=== PATIENT | female | born 1975 | race Caucasian/White ===

== ENCOUNTER 2019-08-17 14:13 | Inpatient (IN) | payer BC, OTHER ==
--- OUTSIDE RECORDS SUMMARY | 2019-08-17 14:16 | XMS REPORT ---
:1975 [facility] Address [address] [place] [address] Dr. Díaz [address] [place] [id number] Care Team Providers Name Role Phone Unavailable Unavailable Unavailable Problems This patient has no known problems. Allergies, Adverse Reactions, Alerts This patient has no known allergies or adverse reactions. Medications This patient has no known medications.
--- OUTSIDE RECORDS SUMMARY | 2019-08-17 14:16 | XMS REPORT ---
:1975 Author Organization [employer] Care Team Providers Name Role Phone Lyric Siegel Provider Role Unavailable Allergies, Adverse Reactions, Alerts Substance Reaction Event Type PCN hives Drug Allergy [place] hives Non Drug Allergy [place] hives Non Drug Allergy [place] hives Non Drug Allergy Problems Problem Type Condition Code Onset Dates Condition Status Assessment Paresthesia of both hands R20.2 Active Assessment Depression with anxiety F41.8 Active Assessment Hidradenitis suppurativa L73.2 Active Assessment Paresthesia of arm R20.2 Active Problem Depression F32.9 Active Problem Depression with anxiety F41.8 Active Problem Anxiety F41.9 Active Problem Paresthesia of both hands R20.2 Active Problem Seasonal allergies J30.2 Active Problem Paresthesia of arm R20.2 Active Medications Medication Code Code Instructions Start End Status Dosage System Date Date BusPIRone HCl [facility] [id number] 7.5 MG Orally Oct 24, Active 1 tablet Twice a day 2019 as needed for anxiety Ashwagandha [facility] [id number] Active not defined Trintellix [facility] [id number] 10 MG Orally Oct 24, Active 1 tablet Once a day for 2019 depression Results No Known Results Summary Purpose eClinicalWorks Submission
--- OUTSIDE RECORDS SUMMARY | 2019-08-17 14:17 | XMS REPORT ---
:1975 Author Organization [employer] Care Team Providers Name Role Phone Lyric Siegel Provider Role Unavailable Allergies No Known Allergies Problems Problem Type Condition Code Onset Dates Condition Status Problem Depression F32.9 Active Problem Depression with anxiety F41.8 Active Problem Anxiety F41.9 Active Problem Paresthesia of both hands R20.2 Active Problem Seasonal allergies J30.2 Active Problem Paresthesia of arm R20.2 Active Medications Medication Code Code Instructions Start End Status Dosage System Date Date Paroxetine HCl [facility] [id number] 20 MG Orally Jun 27, Active 1 tablet Once a day 2019 in the morning Results No Known Results Summary Purpose eClinicalWorks Submission
--- OUTSIDE RECORDS SUMMARY | 2019-08-17 14:17 | XMS REPORT ---
:1975 Author Organization [employer] Care Team Providers Name Role Phone Robbin Lyric Provider Role Unavailable Allergies No Known Allergies Problems Problem Type Condition Code Onset Dates Condition Status Problem Depression F32.9 Active Problem Depression with anxiety F41.8 Active Problem Anxiety F41.9 Active Problem Paresthesia of both hands R20.2 Active Problem Seasonal allergies J30.2 Active Problem Paresthesia of arm R20.2 Active Medications No Known Medications Results No Known Results Summary Purpose eClinicalWorks Submission
[2019-08-17] MEDS ORDERED: ONDANSETRON 4 MG/2 ML VIAL ONE (15:41)
[2019-08-17] MEDS ORDERED: MORPHINE 4 MG/ML SYR ONE ×2 (15:41→17:08)
[2019-08-17 15:45] LABS: Absolute Lymphocytes (CBC) 1.8 K/uL (0.7-4.9); Basophils % 0.3 % (0-1.3); Lymphocytes % 18.2 % (15.3-44.8); RBC Red Blood Cell Count 4.03 M/uL (3.86-4.86)
[2019-08-17 16:00] LABS: ALT/SGPT 40 U/L (12-78); AST/SGOT 25 U/L (15-37); Albumin 3.6 g/dL (3.4-5.0); Alkaline Phosphatase 99 U/L (45-117); BUN Blood Urea Nitrogen 10 mg/dL (7-18); Bicarbonate 26 mmol/L (21-32); Bilirubin Total 0.4 mg/dL (0.2-1.0); Glucose Level 96 mg/dL (74-106); Potassium 3.8 mmol/L (3.5-5.1); Protein, Total 7.5 g/dL (6.4-8.2); Sodium Level 139 mmol/L (136-145)
[2019-08-17 16:12] LABS: Urine Blood NEGATIVE (NEG); Urine Glucose NEGATIVE (NEG); Urine Protein NEGATIVE (NEG); Urine pH 6.5 (5.0-7.0)
--- NOTE | 2019-08-17 16:53 | RAD REPORT ---
EXAM DESCRIPTION: CT - Soft Tissue Neck W/Contr - 08/17/2019 4:37 pm CLINICAL HISTORY: Right neck and facial pain and swelling COMPARISON: None. TECHNIQUE: Computed axial tomography of the neck and face was obtained. 50 cc Isovue 300 was admini stered intravenously. Coronal and sagittal reconstruction was performed. All CT scans are performed using dose optimization technique as appropriate and may include automated exposure control or mA/KV adjustment according to patient size. FINDINGS: A 19 millimeter low-density mass is present within the subcutaneous tissues of the right c heek compatible with an abscess. Stranding is present within the adjacent fat The parotid and submandibular glands appear unremarkable. The parapharyngeal fat is clear. The pharynx, larynx, tongue base and subglottic trachea are unremarkable. Fluid is not present within the sinuses/mastoids IMPRESSION: 19 millimeter abscess right cheek
--- NOTE | 2019-08-17 16:53 | RAD REPORT ---
EXAM DESCRIPTION: CTFacial Bones W Con Mpr08/17/2019 4:36 pm CLINICAL HISTORY: Right facial/neck pain and swelling COMPARISON: None. TECHNIQUE: Computed axial tomography of the face and neck obtained with coronal and sagittal reconst ruction. 50 cc Isovue-[address] scans are performed using dose optimization technique as appropriate and may include automated exposure control or mA/KV adjustment according to patient size. FINDINGS: A 19 millimeter low-density mass is present within the subcutaneous tissues of the right c heek compatible with an abscess. Stranding is present within the adjacent fat The parotid and submandibular glands appear unremarkable. The parapharyngeal fat is clear. The pharynx, larynx, tongue base and subglottic trachea are unremarkable. Fluid is not present within the sinuses/mastoids IMPRESSION: 19 millimeter abscess within the right cheek .
--- NOTE | 2019-08-17 17:44 | ER ---
Nurse's Notes [facility] Name: Radha Ha Age: 44 yrs Sex: Female : 1975 Arrival Date: 08/17/2019 Time: 14:17 Bed 15 Private MD: Diagnosis: Facial Cellulitis;Facial Abscess;Failed Outpatient Therapy Presentation: 08/17 14:25 Presenting complaint: Patient states: was seen by urgent care yesterday for right sv facial swelling and given meds, swelling has increased on the right side and radiated down to the right neck. Transition of care: patient was not received from another setting of care. Onset of symptoms was July 2019. Care prior to arrival: None. 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 - Social history:: Smoking status: Patient/guardian denies using tobacco, Patient/guardian denies using alcohol, street drugs. Screenin:40 Abuse screen: Denies threats or abuse. Denies injuries from another. Nutritional ch screening: No deficits noted. Tuberculosis screening: No symptoms or risk factors identified. Fall Risk None identified. Assessment: 14:38 Reassessment: Patient appears in no apparent distress at this time. Patient and/or ch family updated on plan of care and expected duration. Pain level reassessed. Patient is alert, oriented x 3, equal unlabored respirations, skin warm/dry/pink. Pain: Complains of pain in face and throat Pain currently is 7 out of 10 on a pain scale. Respiratory: Airway is patent Respiratory effort is even, unlabored, Breath sounds are clear bilaterally. GI: No signs and/or symptoms were reported involving the gastrointestinal system. EENT: Oral mucosa is moist. pt has swelling to cheek, exterior and going interior. states her teeth feel fine but now she is having pain and pressure in the back of her throat on the R side, in her ear, and her forehead. . EENT: Throat is reddened. Derm: Skin is pink, warm \T\ dry. Wound noted Other: pt states she has 7 active wounds on her body right now, she always gets them. states this is the first time she has had one on her face, and her R cheek is extremely swollen and red. Musculoskeletal: Circulation, motion, and sensation intact. 16:25 Reassessment: Patient appears in no apparent distress at this time. Patient and/or ch family updated on plan of care and expected duration. Pain level reassessed. Patient is alert, oriented x 3, equal unlabored respirations, skin warm/dry/pink. Patient states feeling better. Patient states symptoms have improved. pt states her pain is a 6, it is tolerable. . 19:10 General: Appears in no apparent distress. uncomfortable, Behavior is calm, cooperative, rr5 appropriate for age, for transfer to room 411. ED provider aware for the pain with order made and carried out.. 19:10 Pain: Complains of pain in right cheek Pain radiates to neck Pain currently is 8 out of rr5 10 on a pain scale. Quality of pain is described as aching, Pain began gradually, Is intermittent. Neuro: Level of Consciousness is awake, alert, obeys commands, Oriented to person, place, time, situation, Appropriate for age. Cardiovascular: Capillary refill < 3 seconds Patient's skin is warm and dry. Respiratory: Airway is patent Respiratory effort is even, unlabored, Respiratory pattern is regular, symmetrical. GI: No signs and/or symptoms were reported involving the gastrointestinal system. : No signs and/or symptoms were reported regarding the genitourinary system. EENT: Oral mucosa is moist. Throat is reddened with gag reflex present. Derm: Skin is intact, is healthy with good turgor, Skin temperature is warm. Musculoskeletal: Capillary refill < 3 seconds. 20:00 Reassessment: Patient appears in no apparent distress at this time. Patient is alert, rr5 oriented x 3, equal unlabored respirations, skin warm/dry/pink. stat medication given for the pain. Vital Signs: 14:26 BP 140 / 82; Pulse 86; Resp 16; Temp 97.8; Pulse Ox 96% ; Weight 88.9 kg; Height 5 ft. sv 5 in. (165.10 cm); 15:40 BP 156 / 78; Pulse 85; Resp 18; Pulse Ox 97% on R/A; Pain 9/10; ch 16:25 BP 127 / 76; Pulse 77; Resp 16; Pulse Ox 99% on R/A; Pain 6/10; ch 19:10 BP 141 / 75; Pulse 75; Resp 17; Temp 98.1; Pulse Ox 98% ; Pain 8/10; rr5 19:55 BP 133 / 83; Pulse 79; Resp 19; Temp 98; Pulse Ox 99% ; Pain 8/10; rr5 14:26 Body Mass Index 32.62 (88.90 kg, 165.10 cm) sv ED Course: 14:17 Patient arrived in ED. as 14:25 Triage completed. sv 14:26 Arm band placed on. sv 14:36 Mary Cisse, ROSALIE is Primary Nurse. ch 14:58 Catracho Khoury PA is PHCP. [facility] 14:58 Johnny Rosario MD is Attending Physician. jmm 15:40 No apparent distress. Resting quietly. ch 15:40 Pulse ox on. NIBP on. ch 15:40 No provider procedures requiring assistance completed. ch 15:43 Patient has correct armband on for positive identification. Bed in low position. Call light in reach. Side rails up X 1. Adult w/ patient. 15:43 Inserted saline lock: 22 gauge in right forearm, using aseptic technique. Blood ch collected. 16:36 CT Facial Bones W/ Con \T\ Mpr In Process Unspecified. EDMS 16:36 Soft Tissue Neck W/Contr CT In Process Unspecified. EDMS 17:27 Marlo Dickson DO is Hospitalizing Provider. jmm 20:01 Delvin Wood, RN is Primary Nurse. rr5 20:09 Patient admitted, IV remains in place. intact, No redness/swelling at site. rr5 Administered Medications: 15:54 Drug: morphine 4 mg Route: IVP; Site: right forearm; ch 15:54 Drug: Zofran 4 mg Route: IVP; Site: right forearm; ch 17:14 Drug: morphine 4 mg Route: IVP; Site: right forearm; ch 19:25 Dru mg of (Clindamycin 300 mg, NS 0.9% 50 ml) Route: IVPB; Infused Over: 30 mins; rr5 Site: right forearm; 19:55 Follow up: Response: No adverse reaction; IV Status: Completed infusion; IV Intake: [id number] 19:58 Drug: morphine 2 mg {Note: rass 0.} Route: IVP; Site: right forearm; rr5 20:11 Follow up: Response: Other; given prior to transfer to room rr5 20:00 Dru grams of (vancoMYCIN 1 grams, NS 0.9% 250 ml) Route: IVPB; Infused Over: 2 hrs; rr5 Site: right forearm; 20:11 Follow up: IV Status: Infusion continued upon admission rr5 Intake: 19:55 IV: 50ml; Total: 50ml. rr5 Outcome: 17:26 Discharge ordered by . melly 17:27 Decision to Hospitalize by Provider. melly 20:09 Admitted to Tele accompanied by tech, via wheelchair, room 411, with chart, Report rr5 called to shy 20:09 Condition: stable 20:09 Instructed on the need for admit. 20:26 Patient left the ED. rr5 Signatures: Dispatcher [employer] EDMary Bravo, RN Nava Duran ch, RN RN sv Mickail, Joel, PA PA jmm Martinez, Amelia as Roque, Raymond, RN RN rr5
--- NOTE | 2019-08-17 17:44 | EDPHYS ---
Physician Documentation [facility] Name: Radha Ha Age: 44 yrs Sex: Female : 1975 Arrival Date: 08/17/2019 Time: 14:17 Bed 15 Private MD: ED Physician Johnny Rosario HPI: 08/17 15:09 This 44 yrs old Female presents to ER via Ambulatory with complaints of jmm Facial Swelling, Sore Throat, Ear Pain. 15:09 the patient presents with a swollen area of the neck and face. Onset: The jmm symptoms/episode began/occurred gradually, 5 day(s) ago. Possible cause(s): unknown. Associated signs and symptoms: Pertinent positives: erythema. This is a 44 year old female with a history of hidradenitis suppurativa that presents to the ED with complaints of right sided facial pain and swelling beginning approx 5 days ago. The patient was evaluated at urgent care and administered clindamycin. patient states swelling has increased. . 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 - Social history:: Smoking status: Patient/guardian denies using tobacco, Patient/guardian denies using alcohol, street drugs. ROS: 15:09 Constitutional: Negative for fever, chills, and weight loss, Cardiovascular: Negative jmm for chest pain, palpitations, and edema, Respiratory: Negative for shortness of breath, cough, wheezing, and pleuritic chest pain. 15:09 Skin: Positive for erythema. 15:09 All other systems are negative. Exam: 15:09 Constitutional: This is a well developed, well nourished patient who is awake, alert, jmm and in no acute distress. 15:09 Eyes: EOMI, no conjunctival erythema appreciated ENT: Moist Mucus Membranes 15:09 Chest/axilla: Normal chest wall appearance and motion. Cardiovascular: Regular rate and rhythm. No edema appreciated Respiratory: Normal respirations, no respiratory distress appreciated Abdomen/GI: Non distended, soft Back: Normal ROM MS/ Extremity: Moves all extremities, no obvious deformities appreciated, no edema noted to the lower extremities Neuro: Awake and alert, normal gait Psych: Behavior is normal, Mood is normal, Patient is cooperative and pleasant 15:09 Head/face: right cheek induration and erythema appreciated. 15:09 Neck: Lymph nodes: lymphadenopathy is appreciated, anterior cervical nodes. 15:09 Skin: erythema and induration is appreciated to the right cheek. 15:09 Neuro: Orientation: is normal, Mentation: is normal, Memory: is normal. 15:09 Psych: Behavior/mood is pleasant, cooperative. Vital Signs: 14:26 BP 140 / 82; Pulse 86; Resp 16; Temp 97.8; Pulse Ox 96% ; Weight 88.9 kg; Height 5 ft. sv 5 in. (165.10 cm); 15:40 BP 156 / 78; Pulse 85; Resp 18; Pulse Ox 97% on R/A; Pain 9/10; ch 16:25 BP 127 / 76; Pulse 77; Resp 16; Pulse Ox 99% on R/A; Pain 6/10; ch 19:10 BP 141 / 75; Pulse 75; Resp 17; Temp 98.1; Pulse Ox 98% ; Pain 8/10; rr5 19:55 BP 133 / 83; Pulse 79; Resp 19; Temp 98; Pulse Ox 99% ; Pain 8/10; rr5 14:26 Body Mass Index 32.62 (88.90 kg, 165.10 cm) sv MDM: 15:09 Patient medically screened. [facility] 17:24 Data reviewed: vital signs, nurses notes. Counseling: I had a detailed discussion with melly the patient and/or guardian regarding: the historical points, exam findings, and any diagnostic results supporting the discharge/admit diagnosis, lab results, radiology results, the need for further work-up and treatment in the hospital. ED course: I discussed the patient with Dr. Bhat and Mandeep Cross. 08/17 15:19 Order name: CBC with Diff; Complete Time: 15:53 [facility] 08/17 15:19 Order name: CMP; Complete Time: 16:01 [facility] 08/17 15:20 Order name: CT Facial Bones W/ Con \T\ Mpr; Complete Time: 16:59 [facility] 08/17 15:55 Order name: Urine Dipstick--Ancillary (enter results); Complete Time: 16:14 [facility] 08/17 15:55 Order name: Urine --Ancillary (enter results); Complete Time: 16:14 [facility] 08/17 17:44 Order name: Blood Culture Adult (2) [facility] 08/17 15:20 Order name: Soft Tissue Neck W/Contr CT; Complete Time: 16:59 [facility] 08/17 17:41 Order name: CONS Physician Consult [facility] 08/17 15:19 Order name: Urine Dipstick-Ancillary (obtain specimen); Complete Time: 15:52 [facility] 08/17 15:43 Order name: Urine Test (obtain specimen); Complete Time: 15:52 [facility] Administered Medications: 15:54 Drug: morphine 4 mg Route: IVP; Site: right forearm; ch 15:54 Drug: Zofran 4 mg Route: IVP; Site: right forearm; ch 17:14 Drug: morphine 4 mg Route: IVP; Site: right forearm; ch 19:25 Dru mg of (Clindamycin 300 mg, NS 0.9% 50 ml) Route: IVPB; Infused Over: 30 mins; rr5 Site: right forearm; 19:55 Follow up: Response: No adverse reaction; IV Status: Completed infusion; IV Intake: [id number] 19:58 Drug: morphine 2 mg {Note: rass 0.} Route: IVP; Site: right forearm; rr5 20:11 Follow up: Response: Other; given prior to transfer to room rr5 20:00 Dru grams of (vancoMYCIN 1 grams, NS 0.9% 250 ml) Route: IVPB; Infused Over: 2 hrs; rr5 Site: right forearm; 20:11 Follow up: IV Status: Infusion continued upon admission rr5 Disposition: 08/18 07:30 Co-signature as Attending Physician, Johnny Rosario MD I agree with the assessment and kdr plan of care. Disposition: 08/17/19 17:27 Hospitalization ordered by Marlo Dickson for Observation. Preliminary diagnosis are Facial Cellulitis, Facial Abscess, Failed Outpatient Therapy. - Bed requested for Telemetry/MedSurg (observation). - Status is Observation. rr5 - Condition is Stable. - Problem is new. - Symptoms are unchanged. UTI on Admission? No Signatures: Dispatcher [employer] EDMS Mary Cisse, RN Nava Duran ch RN Lorraine Ch RN RN dw Rittger, Kevin, MD MD kdr Mickail, Joel, PA PA [facility] Delvin Wood, RN RN rr5 Corrections: (The following items were deleted from the chart) 08/17 17:27 17:26 08/17/2019 17:26 Discharged to Home. Impression: Facial Cellulitis; Failed [facility] Outpatient Treatment. Condition is Stable. Forms are Medication Reconciliation Form, Thank You Letter, Antibiotic Education, Prescription Opioid Use. Follow up: Private Physician; When: 2 - 3 days; Reason: Recheck today's complaints, Continuance of care, Re-evaluation by your physician. [facility] 17:28 17:27 Hospitalization Ordered by Marlo Dickson DO for Observation. Preliminary [facility] diagnosis is Facial Cellulitis; Facial Abscess. Bed requested for Telemetry/MedSurg (observation). Status is Observation. Condition is Stable. Problem is new. Symptoms are unchanged. UTI on Admission? No. [facility] 18:36 17:28 08/17/2019 17:27 [facility] Preliminary diagnosis is Facial Cellulitis; Facial Abscess; Failed Outpatient Therapy. Bed requested for Telemetry/MedSurg (observation). Status is Observation. Condition is Stable. Problem is new. Symptoms are unchanged. UTI on Admission? No. [facility] 18:41 18:36 08/17/2019 17:27 Hospitalization Ordered by Marlo Yessi SCALES for Observation. dw Preliminary diagnosis is Facial Cellulitis; Facial Abscess; Failed Outpatient Therapy. Bed requested for Telemetry/MedSurg (observation). Status is Observation. Condition is Stable. Problem is new. Symptoms are unchanged. UTI on Admission? No. dw 20:26 18:41 08/17/2019 17:27 [facility] rr5 Preliminary diagnosis is Facial Cellulitis; Facial Abscess; Failed Outpatient Therapy. Bed requested for Telemetry/MedSurg (observation). Status is Observation. Condition is Stable. Problem is new. Symptoms are unchanged. UTI on Admission? No. dw
--- NOTE | 2019-08-17 18:57 | P.HP ---
Certification for Inpatient Patient admitted to: Inpatient With expected LOS: >2 Midnights Patient will require the following post-hospital care: None Practitioner: I am a practitioner with admitting privileges, knowledge of patient current condition, hospital course, and medical plan of care. Services: Services provided to patient in accordance with Admission requirements found in Title 42 Section 412.3 of the Code of Federal Regulations <Bob Huston - Last Filed: 08/17/19 18:52> Patient History Date of Service: 08/17/19 Reason for admission: Cutaneous Abscess of face with cellulitis History of Present Illness: This is a 44-year-old female that came to the ER today after worsening of facial pain and swelling. Patient was put on clindamycin for cellulitis of the face. Patient continues to have increase in swelling and redness along with pain. Patient had a CT of the face and neck completed in the ED showing a 2 cm abscess of the right cheek with surrounding inflammatory cellulitic changes. No extension into the orbital region. Patient not septic at this time. Will start her on antibiotics. Plastic Surgery was consulted and plans to do incision and drainage in the OR tomorrow morning. Home medications list reviewed: Yes - Past Medical/Surgical History Has patient received pneumonia vaccine in the past: No Diabetic: No Past Medical History: Reviewed- Non-Contributory Past Surgical History: Reviewed- Non-Contributory - Family History Family History: Reviewed- Non-Contributory - Social History Smoking Status: Never smoker Smoking therapy provided: No Alcohol use: Yes CD- Drugs: No Caffeine use: Yes Place of Residence: Home <Bob Huston - Last Filed: 08/17/19 18:52> Date of Service: 08/17/19 - Past Medical/Surgical History Psychosocial/ Personal History: Patient lives at home <Marlo Dickson - Last Filed: 08/17/19 19:03> Allergies Penicillins Allergy (Verified 01/30/16 15:15) Unknown Home Medications: Duloxetine HCl [Cymbalta] 30 mg PO DAILY 01/30/16 Codeine/APAP [Tylenol W/Codeine #3 tab] 1 tab PO Q6HP PRN #30 tab 02/03/16 Mupirocin Oint [Bactroban 2% Ointment] 22 appl TOP BID #1 tube 02/03/16 NaCl 0.9% Irr Bottle [Ns Irrigation Bottle] 3,000 ml IR BID #3 btl 02/03/16 Promethazine Tab [Phenergan] 25 mg PO Q6HP PRN #10 tab 02/03/16 Sulfamethoxazole/Trimethoprim [Bactrim Ds Tablet] 1 each PO BID #12 tablet 02/02 Review of Systems General: Unremarkable Eyes: Unremarkable ENT: Unremarkable Respiratory: Unremarkable Cardiovascular: Unremarkable Gastrointestinal: Unremarkable Musculoskeletal: Unremarkable Integumentary: As per HPI Neurological: Unremarkable <Bob Huston - Last Filed: 08/17/19 18:52> Physical Examination - Vital Signs Temperature: 97.8 F Blood Pressure: 127/76 Pulse: 77 Respirations: 16 Pulse Ox (%): 99 - Physical Exam General: Alert, In no apparent distress, Oriented x3 HEENT: PERRLA, Mucous membr. moist/pink, EOMI Neck: Supple, 2+ carotid pulse no bruit, JVD not distended, No Thyromegaly Respiratory: Clear to auscultation bilaterally, Normal air movement Cardiovascular: No edema, Normal pulses, Regular rate/rhythm, Normal S1 S2, No gallops, No rubs, No murmurs Capillary refill: <2 Seconds Gastrointestinal: Hypoactive, Soft and benign, Non-distended, No ascites, No tenderness, No masses, No rebound, No guarding Musculoskeletal: No clubbing, No swelling, No contractures, No erythema, No tenderness, No warmth Integumentary: Other (The patient has swelling and erythema to the right cheek. Approximately 5 cm x 5 cm indurated tissue felt. Mild fluctuance within that indurated tissue.) Neurological: Normal gait, Normal speech, Normal strength at 5/5 x4 extr, Normal tone, Sensation intact, Cranial nerves 3-12 intact, Normal reflexes 2+, Normal affect Lymphatics: Other (submandibular lymphadenopathy present) - Studies Laboratory Data (last 24 hrs) 08/17/19 15:30: Sodium 139, Potassium 3.8, BUN 10, Creatinine 0.65, Glucose 96, Total Bilirubin 0.4, AST 25, ALT 40, Alkaline Phosphatase 99 08/17/19 15:30: WBC 10.0, Hgb 12.5, Hct 37.0, Plt Count 333 <Bob Huston - Last Filed: 08/17/19 18:52> - Studies Laboratory Data (last 24 hrs) 08/17/19 15:30: Sodium 139, Potassium 3.8, BUN 10, Creatinine 0.65, Glucose 96, Total Bilirubin 0.4, AST 25, ALT 40, Alkaline Phosphatase 99 08/17/19 15:30: WBC 10.0, Hgb 12.5, Hct 37.0, Plt Count 333 <Marlo Dickson - Last Filed: 08/17/19 19:03> Assessment and Plan - Problems (Diagnosis) (1) Cutaneous abscess of face Current Visit: Yes Status: Acute (2) Cellulitis, face Current Visit: Yes Status: Acute - Plan Patient was started on IV antibiotics in the emergency room. We will have this continued for the next couple of days. Patient plan to go to surgery in the a.m. for incision and drainage of cutaneous abscess. Plastic Surgery has been consulted. Will monitor labs to ensure the patient does not become septic. Patient will most likely be admitted for the next 2-3 days for IV antibiotics, status post incision and drainage of cutaneous abscess of the right cheek. Discharge Plan: Home Plan to discharge in: Greater than 2 days - Advance Directives Does patient have a Living Will: No Does patient have a Durable POA for Healthcare: No - Code Status/Comfort Care Code Status Assessed: Yes Code Status: Full Code Critical Care: No Time Spent Managing Pts Care (In Minutes): 45 <Bob Huston - Last Filed: 08/17/19 18:52> - Plan Agree with plan of care. Patient will require debridement tomorrow. Await recommendations by plastic surgery Time Spent Managing Pts Care (In Minutes): 55 <Marlo Dickson - Last Filed: 08/17/19 19:03>
[2019-08-17] MEDS ORDERED: VANCOMYCIN 1 GM/VIAL ONE (19:07)
[2019-08-17] MEDS ORDERED: CLINDAMYCIN IV 150 MG/ML (4 mL) VIAL ONE (19:08)
[2019-08-17] MEDS ORDERED: NA CHLORIDE 0.9% 250 ML ONE (19:08)
[2019-08-17] MEDS ORDERED: NA CHLORIDE 0.9% 50 ML IV ONE (19:08)
[2019-08-17] MEDS ORDERED: MORPHINE 2 MG/ML SYR ONE (19:38)
[2019-08-17] MEDS ORDERED: ACETAMINOPHEN 500 MG TAB PO PRN (20:58)
[2019-08-17] MEDS: NA CHLORIDE 0.9% 1,000 ML IV SCH (21:30)
[2019-08-17 21:32] VITALS: BMI 32.5
[2019-08-17] MEDS ORDERED: VANCOMYCIN/NS 1 gm 1 GM/250 ML BAG IVPB ONE (21:45)
[2019-08-18] MEDS ORDERED: VANCOMYCIN 1 GM/VIAL ONE (00:01)
[2019-08-18] MEDS ORDERED: VANCOMYCIN 500 MG/VIAL ONE (00:02)
[2019-08-18] MEDS ORDERED: NA CHLORIDE 0.9% 250 ML ONE (00:06)
[2019-08-18] MEDS ORDERED: CLINDAMYCIN IV 150 MG/ML (6 mL) VIAL ONE ×2 (00:06→00:10)
[2019-08-18] MEDS: CLINDAMYCIN INJ 600 MG in NA CHLORIDE 0.9% 50 ML IV SCH ×4 (00:23→18:02)
[2019-08-18] MEDS ORDERED: NA CHLORIDE 0.9% 100 ML ONE (00:28)
[2019-08-18] MEDS: MORPHINE 4 MG/ML SYR IV PRN ×4 (00:29→12:07)
[2019-08-18 00:57] LABS: Urine Appearance CLEAR; Urine Bilirubin NEGATIVE (NEG); Urine Blood NEGATIVE (NEG); Urine Color YELLOW; Urine Glucose NEGATIVE (NEG); Urine Protein NEGATIVE (NEG); Urine Urobilinogen 0.2 mg/dL (0.2-1.0); Urine pH 6.5 (5.0-7.0)
[2019-08-18 01:11] LABS: Urine Microscopic Reflex NO UMIC
[2019-08-18 06:42] LABS: Absolute Lymphocytes (CBC) 1.8 K/uL (0.7-4.9); Basophils % 0.3 % (0-1.3); Hematocrit 32.8 % (36.0-45.0); Lymphocytes % 20.9 % (15.3-44.8); RBC Red Blood Cell Count 3.56 M/uL (3.86-4.86)
[2019-08-18] MEDS: VANCOMYCIN 1.75 GM in NA CHLORIDE 0.9% 500 ML IVPB SCH ×2 (08:20→20:50)
[2019-08-18 10:11] LABS: Absolute Lymphocytes (CBC) 1.8 K/uL (0.7-4.9); Basophils % 0.1 % (0-1.3); Hematocrit 33.5 % (36.0-45.0); Lymphocytes % 22.1 % (15.3-44.8); MPV 6.9 fL (7.6-11.3); RBC Red Blood Cell Count 3.64 M/uL (3.86-4.86)
[2019-08-18] MEDS: NA CHLORIDE 0.9% 1,000 ML IV SCH ×2 (10:18→23:38)
[2019-08-18] MEDS ORDERED: propofoL 200 MG/20 ML VIAL IV ONE (13:38)
[2019-08-18] MEDS ORDERED: ONDANSETRON 4 MG/2 ML VIAL ONE (13:38)
[2019-08-18] MEDS ORDERED: LIDOCAINE 2% MPF 5 ML VIAL ONE (13:38)
[2019-08-18] MEDS ORDERED: FENTANYL CITR 100 MCG/2 ML ONE (13:38)
[2019-08-18] MEDS ORDERED: MIDAZOLAM HCL 2 MG/2 ML INJ ONE (13:38)
[2019-08-18] MEDS ORDERED: BUPIVACA 0.5%/EPI 0.0005%/PF 10 ML VIAL ONE (14:46)
[2019-08-18] MEDS ORDERED: KETOROLAC 30 MG/ML INJ ONE (14:47)
[2019-08-18] MEDS: MORPHINE 4 MG/ML SYR ONE ×2 (15:18→15:23)
[2019-08-18] MEDS ORDERED: HYDROMORPHONE HCL 2 MG/ML inj ONE (15:28)
[2019-08-18] MEDS ORDERED: NA CHLORIDE 0.9% 1,000 ML ONE (15:39)
[2019-08-18] MEDS: MEPERIDINE HCL 50 MG/ML IM PRN ×2 (18:02→22:24)
[2019-08-18] MEDS: ONDANSETRON 4 MG/2 ML VIAL IV PRN ×2 (18:02→22:24)
--- NOTE | 2019-08-18 18:47 | P.PN ---
Subjective Date of Service: 08/18/19 Chief Complaint: Cutaneous Abscess of face with cellulitis Subjective: Doing well Physical Examination - Vital Signs Temperature: 97.1 F Blood Pressure: 110/65 Pulse: 78 Respirations: 16 Pulse Ox (%): 96 - Physical Exam General: Alert Respiratory: Clear to auscultation bilaterally, Normal air movement Cardiovascular: Normal pulses, Regular rate/rhythm Integumentary: Other (Patient still with edema to the right facial region. ) Assessment & Plan Discharge Plan: Home Plan to discharge in: 72 Hours Physician Review Additional Text: Impression: Right facial cellulitis with abscess Plan: Patient NPO for debridement by plastic surgery. Continue antibiotic therapy. Patient reports history of hidradenitis requiring surgeries in the past to the arm pits. Will discuss with plastic surgery. Anticipate discharge once wound cultures obtained. Will monitor closely. Will provide medication for pain. Time Spent Managing Pts Care (In Minutes): 55
--- NOTE | 2019-08-18 22:54 | OP ---
Surgeon: Celso Bhat MD Drill Rig Operator Helper: Marcell. Preoperative Diagnosis: Abscess of the right face. Postoperative Diagnosis: Abscess of the right face. Procedure Performed: Excision of skin subcutaneous tissue, I and D abscess. Anesthesia: General. Procedure In Detail: After satisfactory induction of general anesthesia, left face was prepped with Betadine scrub, Betadine paint, dry sterile drapes applied in the usual manner. An elliptical incisi on was made at the center of the abscess. Pus was encountered. Cultures were taken. The wound was curetted, jet lavaged, irrigated with 3 L of dilute Betadine solution. Electrocautery again was used for hemostasis. Wound packed with a [place] drain, sewn in place with 2-0 silk, 4 x 4's and tape. The patient tolerated the procedure well and returned to Recovery. VIJI/NADEEM Voice ID: [id number] Report ID: [id number]
[2019-08-19] MEDS: CLINDAMYCIN INJ 600 MG in NA CHLORIDE 0.9% 50 ML IV SCH ×4 (00:29→18:49)
[2019-08-19] MEDS: MEPERIDINE HCL 50 MG/ML IM PRN ×4 (03:02→18:00)
[2019-08-19 06:50] LABS: Absolute Lymphocytes (CBC) 1.6 K/uL (0.7-4.9); Basophils % 0.4 % (0-1.3); Hematocrit 30.3 % (36.0-45.0); Lymphocytes % 17.7 % (15.3-44.8); MPV 6.7 fL (7.6-11.3); RBC Red Blood Cell Count 3.25 M/uL (3.86-4.86)
[2019-08-19] MEDS ORDERED: TRAMADOL HCL 50 MG TAB PO PRN (07:44)
--- NOTE | 2019-08-19 09:13 | PN ---
The patient underwent incision and drainage of right facial abscess yesterday, the right side of the face is swollen, lower than left. She had [QAMARKER] Wednesday to debride this area as well. After fin ishing the treatment next Wednesday. JUAN Voice ID: [id number] Report ID: [id number]
[2019-08-19] MEDS: VANCOMYCIN 1.75 GM in NA CHLORIDE 0.9% 500 ML IVPB SCH ×2 (09:30→20:13)
[2019-08-19] MEDS: ALPRAZOLAM 0.25 MG TABLET PO PRN ×2 (12:41→20:31)
--- NOTE | 2019-08-19 14:26 | P.PN ---
Subjective Date of Service: 08/19/19 Chief Complaint: Cutaneous Abscess of face with cellulitis Subjective: Doing well Physical Examination - Vital Signs Temperature: 97.7 F Blood Pressure: 107/58 Pulse: 76 Respirations: 15 Pulse Ox (%): 97 - Physical Exam General: Alert HEENT: Other (Bandages to the face noted.) Respiratory: Clear to auscultation bilaterally, Normal air movement Cardiovascular: Normal pulses, Regular rate/rhythm Gastrointestinal: Normal bowel sounds, Soft and benign, Non-distended - Studies Medications List Reviewed: Yes Assessment & Plan Discharge Plan: Home Plan to discharge in: 48 Hours Physician Review Additional Text: Impression: Right facial cellulitis with abscess status post irrigation and debridement with history of hydratinitis suppurativa Plan: Patient had irrigation and debridement of abscess. Continue wound care. Continue antibiotic therapy. Surgery plans to take patient back on Wednesday for reassessment and possible closure. Await culture results. Will adjust pain medication. Will provide medication for anxiety. Time Spent Managing Pts Care (In Minutes): 55
[2019-08-19] MEDS: CODEINE 30MG/APAP 300MG TAB PO PRN (20:13)
[2019-08-20] MEDS: CLINDAMYCIN INJ 600 MG in NA CHLORIDE 0.9% 50 ML IV SCH ×4 (00:47→18:34)
[2019-08-20] MEDS: MEPERIDINE HCL 50 MG/ML IM PRN ×3 (00:53→13:42)
[2019-08-20] MEDS ORDERED: NA CHLORIDE 0.9% 500 ML ONE (05:09)
[2019-08-20] MEDS: ALPRAZOLAM 0.25 MG TABLET PO PRN ×3 (05:11→20:14)
[2019-08-20] MEDS: CODEINE 30MG/APAP 300MG TAB PO PRN ×2 (05:11→22:44)
[2019-08-20 06:33] LABS: BUN Blood Urea Nitrogen 8 mg/dL (7-18); Bicarbonate 26 mmol/L (21-32); Glucose Level 107 mg/dL (74-106); Magnesium 2.1 mg/dL (1.8-2.4); Potassium 4.1 mmol/L (3.5-5.1); Sodium Level 137 mmol/L (136-145)
[2019-08-20 06:35] LABS: Absolute Lymphocytes (CBC) 1.6 K/uL (0.7-4.9); Basophils % 0.6 % (0-1.3); Hematocrit 29.5 % (36.0-45.0); Lymphocytes % 21.4 % (15.3-44.8); MPV 7.1 fL (7.6-11.3); RBC Red Blood Cell Count 3.21 M/uL (3.86-4.86)
[2019-08-20] MEDS: VANCOMYCIN 1.75 GM in NA CHLORIDE 0.9% 500 ML IVPB SCH ×2 (10:06→21:00)
--- NOTE | 2019-08-20 11:31 | P.PN ---
Subjective Date of Service: 08/20/19 Chief Complaint: Cutaneous Abscess of face with cellulitis Subjective: Improving, Doing well Physical Examination - Vital Signs Temperature: 96.9 F Blood Pressure: 110/66 Pulse: 84 Respirations: 18 Pulse Ox (%): 99 - Physical Exam General: Alert, In no apparent distress, Oriented x3, Cooperative HEENT: Other (Swelling to the right facial region improved) Neck: Supple Respiratory: Clear to auscultation bilaterally, Normal air movement Cardiovascular: Normal pulses, Regular rate/rhythm Neurological: Normal speech, Normal strength at 5/5 x4 extr, Normal tone - Studies Medications List Reviewed: Yes Assessment & Plan Discharge Plan: Home Plan to discharge in: 24 Hours Physician Review Additional Text: Impression: Right facial cellulitis with abscess status post irrigation and debridement with history of hydratinitis suppurativa Plan: Right facial cellulitis with abscess status post irrigation and debridement with history of hydratinitis suppurativa: Patient status post irrigation and debridement. Continue current wound care and packing. Continue IV antibiotic therapy. Plastic surgery plans for possible further debridement and closure tomorrow. Await recommendations at that time. Patient will likely require dual therapy Bactrim/doxycycline at discharge. Anticipate discharge as early as tomorrow or in the next day pending surgical treatment and clinical improvement. I will turn the service over to the hospitalist team tomorrow. I will go the plan of care with him. Time Spent Managing Pts Care (In Minutes): 55
--- NOTE | 2019-08-20 11:34 | PN ---
The patient's dressing is changed. The drains removed . Plans for tomorrow n.p.o. at midnight. We will debride tomorrow VIJI/NADEEM Voice ID: [id number] Report ID: [id number] MTDD
[2019-08-20] MEDS ORDERED: LIDOCAINE 1% MPF 5 ML VIAL ONE (21:56)
[2019-08-21] MEDS: MEPERIDINE HCL 50 MG/ML IM PRN ×2 (05:16→09:03)
[2019-08-21] MEDS: CLINDAMYCIN INJ 600 MG in NA CHLORIDE 0.9% 50 ML IV SCH ×5 (05:17→18:01)
[2019-08-21 05:58] LABS: Absolute Lymphocytes (CBC) 1.9 K/uL (0.7-4.9); Basophils % 0.5 % (0-1.3); Hematocrit 29.5 % (36.0-45.0); Lymphocytes % 28.9 % (15.3-44.8); MPV 7.2 fL (7.6-11.3); RBC Red Blood Cell Count 3.26 M/uL (3.86-4.86)
[2019-08-21 06:12] LABS: BUN Blood Urea Nitrogen 6 mg/dL (7-18); Bicarbonate 29 mmol/L (21-32); Glucose Level 103 mg/dL (74-106); Magnesium 2.2 mg/dL (1.8-2.4); Potassium 4.1 mmol/L (3.5-5.1); Sodium Level 141 mmol/L (136-145)
[2019-08-21] MEDS ORDERED: VANCOMYCIN 1.75 GM in NA CHLORIDE 0.9% 500 ML IVPB SCH ×2 (07:00→10:00)
--- NOTE | 2019-08-21 08:30 | RAD REPORT ---
EXAM DESCRIPTION: RAD - Chest Single View - 08/21/2019 4:55 am CLINICAL HISTORY: picc line insertion COMPARISON: No comparisons FINDINGS: Portable chest was obtained following placement of a right upper extremity PICC line. The catheter tip projects over the SVC..
[2019-08-21] MEDS: VANCOMYCIN 2 GM in NA CHLORIDE 0.9% 500 ML IVPB SCH ×2 (09:00→22:46)
[2019-08-21] MEDS ORDERED: Ringers Lactate 1,000 ML IV ONE (09:19)
[2019-08-21] MEDS ORDERED: propofoL 200 MG/20 ML VIAL IV ONE (09:33)
[2019-08-21] MEDS ORDERED: LIDOCAINE 2% MPF 5 ML VIAL ONE (09:33)
[2019-08-21] MEDS ORDERED: FENTANYL CITR 100 MCG/2 ML ONE (09:33)
[2019-08-21] MEDS ORDERED: MIDAZOLAM HCL 2 MG/2 ML INJ ONE (09:33)
[2019-08-21] MEDS ORDERED: BUPIVACA 0.5%/EPI 0.0005%/PF 10 ML VIAL ONE (10:11)
[2019-08-21] MEDS ORDERED: Phenylephrine HCl 10 MG/ML 1 ML VIAL ONE (10:40)
[2019-08-21] MEDS ORDERED: NS 0.9% VIAL 10 ML ONE (10:41)
[2019-08-21] MEDS ORDERED: ONDANSETRON 4 MG/2 ML VIAL ONE (11:16)
[2019-08-21] MEDS: MEPERIDINE HCL 25 MG/0.5 ML ONE ×2 (11:32→11:38)
[2019-08-21] MEDS: HYDROMORPHONE HCL 1 MG/ML INJ ONE ×4 (11:42→12:02)
[2019-08-21] MEDS: MEPERIDINE HCL 50 MG/ML IV PRN ×2 (16:07→20:22)
--- NOTE | 2019-08-21 18:08 | P.PN ---
Subjective Date of Service: 08/21/19 Chief Complaint: Cutaneous Abscess of face with cellulitis Patient seen by me after her surgery. Just had an I and D of right facial cellulitis and hidradenitis suppurativa on both sides of her chest. She is in some pain not well tolerated. Physical Examination - Vital Signs Temperature: 97.1 F Blood Pressure: 96/61 Pulse: 75 Respirations: 16 Pulse Ox (%): 98 - Studies Medications List Reviewed: Yes Assessment & Plan Physician Review Additional Text: Impression: Right facial cellulitis with abscess status post irrigation and debridement with history of hydratinitis suppurativa Plan: Right facial cellulitis with abscess status post irrigation and debridement with history of hydratinitis suppurativa: Patient status post irrigation and debridement. Continue current wound care and packing. Continue IV antibiotic therapy. Plastic surgery plans for possible further debridement and closure tomorrow. Await recommendations at that time. Patient will likely require dual therapy Bactrim/doxycycline at discharge. Anticipate discharge as early as tomorrow or in the next day pending surgical treatment and clinical improvement. I will turn the service over to the hospitalist team tomorrow. I will go the plan of care with him.
--- NOTE | 2019-08-21 18:12 | P.PN ---
Subjective Date of Service: 08/21/19 Chief Complaint: Cutaneous Abscess of face with cellulitis Patient seen by me after her surgery. Just had an I and D of right facial cellulitis and hidradenitis suppurativa on both sides of her chest. She is in some pain not well tolerated. Physical Examination - Vital Signs Temperature: 97.1 F Blood Pressure: 96/61 Pulse: 75 Respirations: 16 Pulse Ox (%): 98 - Physical Exam General: Alert, Cooperative, Mild distress HEENT: Other (Surgical gauze covering her right cheek) Respiratory: Clear to auscultation bilaterally, Normal air movement Cardiovascular: No edema, Normal pulses, Regular rate/rhythm, Normal S1 S2 Gastrointestinal: Normal bowel sounds, Soft and benign, Non-distended Musculoskeletal: No swelling, No erythema Integumentary: No warmth, Warmth Neurological: Normal gait, Normal speech, Normal tone, Normal affect - Studies Medications List Reviewed: Yes Assessment & Plan Physician Review Additional Text: Impression: Right facial cellulitis with abscess status post irrigation and debridement with history of hydratinitis suppurativa Plan: Right facial cellulitis with abscess status post irrigation and debridement with history of hydratinitis suppurativa: Patient is status post irrigation and debridement of right cheek, and excisional debridement of hidradenitis suppurative on both breast. She is doing well on vancomycin and clindamycin. Continue current wound care and packing, and multi-modal pain regimen. Will defer plans for wound closure to Plastic surgery.
[2019-08-21] MEDS: CODEINE 30MG/APAP 300MG TAB PO PRN ×2 (18:42→22:46)
--- NOTE | 2019-08-21 21:54 | OP ---
Surgeon: Celso Bhat MD Preoperative Diagnosis: Hidradenitis suppurativa of right cheek, right breast, right and left chest, and left lower abdomen. Postoperative Diagnosis: Hidradenitis suppurativa of right cheek, right breast , right and left chest, and left lower abdomen. Procedure Performed: Debridement of skin and subcutaneous tissue of the right breast and right cheek and excision of skin and subcutaneous tissue with simple closure of the left abdomen and right breast. Anesthesia: General. Procedure In Detail: After satisfactory induction of general anesthesia, the face, neck, chest, and abdomen were prepped with Betadine scrub, Betadine paint , dry sterile drapes applied in usual manner. An elliptical incision was made in the left lower abdomen but below the level of the umbilicus, excising the hidradenitis suppurativa. Electrocautery was used for hemostasis. The wound was jet lavaged and irrigated. The wound was closed with vertical mattress simple sutures and larger excision approximately 10 cm length was made inferior to that, taken down to the groin. This was elliptically excised. Electrocautery was used for hemostasis and irrigated with dilute Betadine solution and closed with 3-0 Prolene vertical mattress simple sutures. The left breast below the inframammary fold or chest wall was elliptically incised and then closed after irrigation and closed with 3-0 Prolene vertical mattress simple sutures. The right breast was approached next. Again, the chest wall was elliptically excised and closed with 3-0 PDS after it was irrigated. However, the right breast itself had 2 abscesses which were incised in continuity. These were left open after excised and irrigated. Then, electrocautery was used for hemostasis. Attention now turned to the cheek, was curetted and again irrigated, and again had tissue removed and necrotic fat and then Betadine 4 x 4 dressing was applied to the cheek and the right breast. Dry sterile dressings to the other wounds. Then, amount of tissue removed from the left upper abdomen was 10, left lower abdomen was 5, the left breast was 6, and the right breast was 3. Patient tolerated the procedure well and returned to Recovery. VIJI/NADEEM Voice ID: [id number] Report ID: [id number] INO
[2019-08-22] MEDS: ALPRAZOLAM 0.25 MG TABLET PO PRN ×2 (00:28→22:56)
[2019-08-22] MEDS: MEPERIDINE HCL 50 MG/ML IV PRN ×5 (00:28→20:40)
[2019-08-22] MEDS: CLINDAMYCIN INJ 600 MG in NA CHLORIDE 0.9% 50 ML IV SCH ×4 (01:00→18:00)
[2019-08-22] MEDS ORDERED: NA CHLORIDE 0.9% 500 ML ONE (01:11)
[2019-08-22] MEDS ORDERED: CLINDAMYCIN IV 150 MG/ML (6 mL) VIAL ONE (01:21)
[2019-08-22] MEDS: CODEINE 30MG/APAP 300MG TAB PO PRN ×5 (03:03→22:56)
[2019-08-22] MEDS ORDERED: NA CHLORIDE 0.9% 100 ML IV ONE (04:58)
[2019-08-22 05:55] LABS: Absolute Lymphocytes (CBC) 1.8 K/uL (0.7-4.9); Basophils % 0.6 % (0-1.3); Lymphocytes % 24.7 % (15.3-44.8); MPV 7.2 fL (7.6-11.3); RBC Red Blood Cell Count 3.06 M/uL (3.86-4.86)
[2019-08-22 07:41] LABS: BUN Blood Urea Nitrogen 7 mg/dL (7-18); Bicarbonate 27 mmol/L (21-32); Glucose Level 101 mg/dL (74-106); Magnesium 2.1 mg/dL (1.8-2.4); Potassium 4.2 mmol/L (3.5-5.1); Sodium Level 140 mmol/L (136-145)
[2019-08-22] MEDS: VANCOMYCIN 2 GM in NA CHLORIDE 0.9% 500 ML IVPB SCH ×2 (09:46→22:57)
[2019-08-22] MEDS: DOCUSATE NA 100 MG CAP PO SCH ×2 (13:21→22:57)
--- NOTE | 2019-08-22 16:13 | P.PN ---
Subjective Date of Service: 08/22/19 Chief Complaint: Cutaneous Abscess of face with cellulitis Possible day 1. Status post I&D of right facial cellulitis and excisional debridement of hidradenitis suppurativa in both breasts. Patient continues to have some pain. Pain is controlled with medication Physical Examination - Vital Signs Temperature: 97.1 F Blood Pressure: 100/66 Pulse: 72 Respirations: 16 Pulse Ox (%): 100 - Physical Exam General: Cooperative, Mild distress HEENT: Other (Right maxillofacial area covered in gauze. Fabius oozing or drainage noted.), EOMI Respiratory: Clear to auscultation bilaterally, Normal air movement Cardiovascular: No edema, Normal pulses, Regular rate/rhythm, Normal S1 S2 Gastrointestinal: Normal bowel sounds, Soft and benign, Non-distended Musculoskeletal: No swelling, No contractures Integumentary: Warmth Neurological: Normal speech, Normal affect - Studies Medications List Reviewed: Yes Assessment & Plan Physician Review Additional Text: Impression: Right facial cellulitis with abscess status post irrigation and debridement with history of hydratinitis suppurativa Plan: Right facial cellulitis with abscess status post irrigation and debridement with history of hydratinitis suppurativa: Patient is status post irrigation and debridement of right cheek, and excisional debridement of hidradenitis suppurative on both breast. Currently on vancomycin and clindamycin. Surgery planning for repeat I&D. In the meantime, continue current wound care and packing, and multi-modal pain regimen. Time Spent Managing Pts Care (In Minutes): 25
[2019-08-23] MEDS: CLINDAMYCIN INJ 600 MG in NA CHLORIDE 0.9% 50 ML IV SCH ×4 (00:59→16:48)
[2019-08-23] MEDS: MEPERIDINE HCL 50 MG/ML IV PRN ×4 (01:00→21:42)
[2019-08-23] MEDS: DOCUSATE NA 100 MG CAP PO SCH ×2 (09:00→21:42)
[2019-08-23] MEDS: VANCOMYCIN 2 GM in NA CHLORIDE 0.9% 500 ML IVPB SCH ×2 (09:32→21:42)
--- NOTE | 2019-08-23 11:41 | P.PN ---
Subjective Date of Service: 08/23/19 Chief Complaint: Cutaneous Abscess of face with cellulitis Possible day 2. Status post I&D of right facial cellulitis and excisional debridement of hidradenitis suppurativa (HS) in both breasts. Patient is NPO for a repeat washout of a right-sided HS around R breast Physical Examination - Vital Signs Temperature: 97.1 F Blood Pressure: 100/59 Pulse: 81 Respirations: 16 Pulse Ox (%): 100 - Physical Exam General: Alert, In no apparent distress, Cooperative, Obese HEENT: Other (Right face with open wound covered by gauze. No oozing or drainage ) Respiratory: Clear to auscultation bilaterally, Normal air movement Cardiovascular: No edema, Normal pulses, Regular rate/rhythm Gastrointestinal: Normal bowel sounds, Soft and benign, Non-distended Musculoskeletal: No swelling, No erythema, No tenderness Integumentary: Warmth Neurological: Normal speech, Normal affect - Studies Medications List Reviewed: Yes Assessment & Plan Physician Review Additional Text: Impression: Right facial cellulitis with abscess status post irrigation and debridement with history of hydratinitis suppurativa Plan: Right facial cellulitis with abscess status post irrigation and debridement with history of hydratinitis suppurativa: Patient is status post irrigation and debridement of right cheek, and excisional debridement of hidradenitis suppurative (HS) on both breast. Currently on vancomycin and clindamycin. Surgery planning for repeat I&D of HS on 08/23/2019. In the meantime, continue current wound care and packing, and multi-modal pain regimen. Will continue to monitor Time Spent Managing Pts Care (In Minutes): 25
[2019-08-23] MEDS ORDERED: Ringers Lactate 1,000 ML IV ONE (12:30)
[2019-08-23] MEDS: FENTANYL CITR 100 MCG/2 ML ONE ×2 (13:21→13:39)
[2019-08-23] MEDS ORDERED: propofoL 200 MG/20 ML VIAL IV ONE (13:34)
[2019-08-23] MEDS ORDERED: LIDOCAINE 1% MPF 5 ML VIAL ONE (13:34)
[2019-08-23] MEDS ORDERED: FENTANYL CITR 100 MCG/2 ML ONE (13:34)
[2019-08-23] MEDS ORDERED: MIDAZOLAM HCL 2 MG/2 ML INJ ONE (13:34)
[2019-08-23] MEDS ORDERED: ONDANSETRON 4 MG/2 ML VIAL ONE (14:30)
[2019-08-23] MEDS ORDERED: KETOROLAC 30 MG/ML INJ ONE (14:30)
[2019-08-23] MEDS ORDERED: HYDROMORPHONE HCL 2 MG/ML inj ONE (15:29)
[2019-08-23] MEDS: ALPRAZOLAM 0.25 MG TABLET PO PRN (21:42)
--- NOTE | 2019-08-23 23:35 | OP ---
Surgeon: Celso Bhat MD Preoperative Diagnosis: Open wound of the right cheek and right breast. Postoperative Diagnosis: Open wound of the right cheek and right breast. Procedure Performed: Debridement of skin and subcutaneous tissue, simple closure 4.5 cm, right breas t. Anesthesia: General. Procedure In Detail: After satisfactory induction of general anesthesia the chest and face were prep ped with Betadine scrub, Betadine paint, dry sterile drapes applied in the usual manner. Curette was used to debride the skin and subcutaneous tissues of the right breast. The wound was irrigated with 1 L of dilute Betadine solution and closed with vertical mattress of 4-0 Prolene, dressed with Xerof orm, 4 x 4s, and tape. The right cheek was debrided with a curette and forceps, jet lavaged, irrigat ed with 2 L of dilute Betadine solution, dressing with 4 x 4s and tape. The patient tolerated the pr ocedure well and returned to recovery. VIJI/NADEEM Voice ID: [id number] Report ID: [id number]
[2019-08-24] MEDS: CODEINE 30MG/APAP 300MG TAB PO PRN ×2 (00:35→11:59)
[2019-08-24] MEDS: CLINDAMYCIN INJ 600 MG in NA CHLORIDE 0.9% 50 ML IV SCH ×3 (01:53→12:00)
[2019-08-24] MEDS: MEPERIDINE HCL 50 MG/ML IV PRN ×2 (02:11→07:42)
[2019-08-24] MEDS: DOCUSATE NA 100 MG CAP PO SCH (09:00)
[2019-08-24] MEDS ORDERED: VANCOMYCIN 1.75 GM in NA CHLORIDE 0.9% 500 ML IVPB SCH (10:00)
[2019-08-24 10:30] VITALS: O2SAT 99
--- NOTE | 2019-08-24 11:56 | P.DS ---
Admission Date: 08/17/19 Discharge Date: 08/24/19 Disposition: ROUTINE DISCHARGE Discharge Condition: GOOD Reason for Admission: Cutaneous Abscess of face with cellulitis Brief History of Present Illness: Patient is a 44 year old female with obesity and Hidrannitis suppurativa admitted to the hospital with R sided facial cellulitis. Hospital Course: Patient was found to have a right facial cellulitis with abscess. She was empirically started on vancomycin and clindamycin and underwent irrigation and debridement of right cheek, and excisional debridement of hidradenitis suppurative (HS) on both breast. Required another I&D of Hidranitis Suppurativa on 08/23/2019. She did well post operatively with wound care, packing , and multi-modal pain regimen. She will be discharged to follow up with Surgery. Vital Signs/Physical Exam: Temp Pulse Resp BP Pulse Ox 97.5 F 75 16 94/65 96 08/24/19 08:00 08/24/19 08:00 08/24/19 08:12 08/24/19 08:00 08/24/19 08:12 General: Alert, In no apparent distress, Obese HEENT: Atraumatic, Normocephalic, Other (R side of face covered with gauze. No visible bleeding or drainage. Site appears clean and dry), EOMI Neck: Supple Respiratory: Clear to auscultation bilaterally, Normal air movement Cardiovascular: No edema, Normal pulses, Regular rate/rhythm, Normal S1 S2 Gastrointestinal: Normal bowel sounds, Soft and benign, Non-distended Musculoskeletal: No swelling, No erythema Integumentary: Warmth Neurological: Normal speech, Normal affect Laboratory Data at Discharge: WBC 7.1 K/uL (4.3-10.9) 08/22/19 05:20 Hgb 9.6 g/dL (12.0-15.0) L 08/22/19 05:20 Hct 28.0 % (36.0-45.0) L 08/22/19 05:20 Plt Count 342 K/uL (152-406) 08/22/19 05:20 Sodium 140 mmol/L (136-145) 08/22/19 05:20 Potassium 4.2 mmol/L (3.5-5.1) 08/22/19 05:20 BUN 7 mg/dL (7-18) 08/22/19 05:20 Creatinine 0.56 mg/dL (0.55-1.3) 08/24/19 08:07 Glucose 101 mg/dL (74-106) 08/22/19 05:20 Magnesium 2.1 mg/dL (1.8-2.4) 08/22/19 05:20 Total Bilirubin 0.4 mg/dL (0.2-1.0) 08/17/19 15:30 AST 25 U/L (15-37) 08/17/19 15:30 ALT 40 U/L (12-78) 08/17/19 15:30 Alkaline Phosphatase 99 U/L (45-117) 08/17/19 15:30 Home Medications: ALPRAZolam [Xanax*] 0.25 mg PO TID PRN tab 08/24/19 Amox/Clavulanate [Augmentin 875-125 Tab] 1 each PO BID #10 tab 08/24/19 Codeine/APAP [Tylenol #3*] 1 tab PO Q6HP PRN #20 tab 08/24/19 Docusate [Colace Cap*] 100 mg PO BID cap 08/24/19 New Medications: Amox/Clavulanate [Augmentin 875-125 Tab] 1 each PO BID #10 tab Codeine/APAP [Tylenol #3*] 1 tab PO Q6HP PRN #20 tab PRN Reason: Pain Scale 5-7 (Moderate) Diet: Regular Followup: Celso Bhat MD [ACTIVE - CAN ADMIT] - 08/28/19 9:00 am (follow up on Wednesday @ 0900)
[2019-08-24 11:57] VITALS: BP 112/66; TEMP 97.3
[2019-08-24] MEDS: ALPRAZOLAM 0.25 MG TABLET PO PRN (12:33)
--- NOTE | 2019-08-24 15:26 | PN ---
The patient's wounds are improving. She was closed yesterday. Only thing that was open was the right cheek. That wound is getting . She will be discharged home to follow up in my office on Wednesday at 9 o'clock . She will continue antibiotics per the hospitalist, and irrigation of the open wound of the right cheek. VIJI/NADEEM Voice ID: [id number] Report ID: [id number] INO
== END 2019-08-24 14:15 | disposition home or self-care (01) | DRG 572 ==
LOC: ER 14:13 → ERHOLD 17:33 → 4TH 20:08
PROVIDERS: ADMIT Family Medicine; ATTEND Internal Medicine
PROC: 0J910ZZ Drainage of Face Subcutaneous Tissue and Fascia, Open Approach (ICD-10-PCS; 2019-08-18)
PROC: 0J910ZZ Drainage of Face Subcutaneous Tissue and Fascia, Open Approach (ICD-10-PCS; 2019-08-21)
PROC: 0J960ZZ Drainage of Chest Subcutaneous Tissue and Fascia, Open Approach (ICD-10-PCS; 2019-08-21)
PROC: 0JB60ZZ Excision of Chest Subcutaneous Tissue and Fascia, Open Approach (ICD-10-PCS; 2019-08-21)
PROC: 0JB80ZZ Excision of Abdomen Subcutaneous Tissue and Fascia, Open Approach (ICD-10-PCS; principal; 2019-08-21 09:30)
PROC: 0JD10ZZ Extraction of Face Subcutaneous Tissue and Fascia, Open Approach (ICD-10-PCS; 2019-08-23)
PROC: 0JD60ZZ Extraction of Chest Subcutaneous Tissue and Fascia, Open Approach (ICD-10-PCS; 2019-08-23)
DX: L03.211 Cellulitis of face (principal); L73.2 Hidradenitis suppurativa
CPT/HCPCS: 36415; 70487; 70491; 71045; 76377; 80048; 80053; 80202; 81003; 81025; 82565; 83735; 85025; 87040; 87070; 87075; 87205; 88304; 96365; 96375; 99285; J1170; J2175; J2250; J2270; J2370; J2405; J2704; J3010; J3370; J7030; J7040; J7120; Q9967; S0077

== ENCOUNTER 2020-10-11 12:28 | Emergency (ER) | payer OTHER ==
--- OUTSIDE RECORDS SUMMARY | 2020-10-11 12:31 | XMS REPORT | Continuity of Care Document ---
:1975 Author Organization [facility] t Address [address] [place] [address] Care Team Providers Name Role Phone Baljinder Gregory MD Attending Clinician Problems Condition Condition Condition Status Onset Resolution Last Treating Co mments Source Name Details Category Date Date Treatment Clinician Date Paresthesi Paresthesi Problem Active [facility] Depression Depression Problem Active [facility] Depression Depression Problem [facility] Anxiety Anxiety Problem [facility] Seasonal Seasonal Problem [facility] Allergies, Adverse Reactions, Alerts Allergy Allergy Status Severity Reaction(s) Onset Inactive Treating Comm ents Source Name Type Date Date Clinician PCN Adverse [facility]ives [facility] [place] Adverse Active hives [facility] [place] Adverse Active hives [facility] [place] Adverse Active hives [facility] Medications Ordered Filled Start Stop Current Ordering Indication Dosage Frequency Signature Comments Components Source Medication Medication Date Date Medication? Clinician (SIG) Name Name Paroxetine Paroxetine 2018-08 Yes Lyric [address] [facility] [address] HCl HCl 1-12 [facility] Procedures This patient has no known procedures. Encounters Start End Encounter Admission Attending Care Care Encounter Source Date/Time Date/Time Type Type Clinicians Facility Department ID 2020-07-03 2020-07-03 Office Alison Gregory [id number] 15:12:07 16:06:29 Visit Baljinder Conner [id number] Shyam [id number] William [id number] [address] 2019-06-27 2019-06-27 Outpatient Justice Randolph [id number] [facility] [address] 16:15:00 16:15:00 [facility] 2019-06-09 2019-06-09 Outpatient Justice Randolph [id number] 09:48:00 09:48:00 [facility] 2019-06-08 2019-06-08 Outpatient Justice Randolph [id number] [facility] 09:00:00 09:00:00 [facility] Clinics Results This patient has no known results.
[2020-10-11] MEDS ORDERED: LIDOCAINE 1% MPF 30 ML VIAL ONE (13:41)
[2020-10-11] MEDS ORDERED: HYDROCODONE/APAP 5/325 MG TAB ONE (13:47)
[2020-10-11] MEDS ORDERED: IBUPROFEN 400 MG TAB ONE (13:47)
--- NOTE | 2020-10-11 14:09 | ER ---
Nurse's Notes [facility] Name: Radha Ha Age: 45 yrs Sex: Female : 1975 Arrival Date: 10/11/2020 Time: 12:33 Bed 26 [facility] MD: Diagnosis: Cutaneous abscess of right axilla;Cutaneous abscess of left axilla Presentation: 10/11 12:40 Chief complaint: Patient states: Abscess to R axilla area for years, flared-up into ll1 painful knot for 1 week now, slowly getting worse. No fever. Slight drainage at times. Coronavirus screen: Client denies travel out of the [place] in the last 14 days. At this time, the client does not indicate any symptoms associated with coronavirus-19. Ebola Screen: Patient denies travel to an Ebola-affected area in the 21 days before illness onset. Initial Sepsis Screen: Does the patient meet any 2 criteria? No. Patient's initial sepsis screen is negative. Does the patient have a suspected source of infection? Yes: Skin breakdown/wound. Risk Assessment: Do you want to hurt yourself or someone else? Patient reports no desire to harm self or others. Onset of symptoms was October 05, 2020. 12:40 Method Of Arrival: Ambulatory ll1 12:40 Acuity: CARLYN 3 ll1 Historical: - Allergies: 12:43 PENICILLINS; ll1 12:43 Cephalexin; ll1 - PMHx: 12:43 Hidradenitis Suppurativa; MRSA; ll1 - PSHx: 12:43 cervical biopsy-removed cells; ll1 - Immunization history:: Flu vaccine is not up to date. - Social history:: Smoking status: Patient denies any tobacco usage or history of. Screenin:58 Abuse screen: Denies threats or abuse. Nutritional screening: No deficits noted. vg1 Tuberculosis screening: No symptoms or risk factors identified. Fall Risk No fall in past 12 months (0 pts). No secondary diagnosis (0 pts). No IV (0 pts). Ambulatory Aid- None/Bed Rest/Nurse Assist (0 pts). Gait- Normal/Bed Rest/Wheelchair (0 pts) Mental Status- Oriented to own ability (0 pts). Total Lopes Fall Scale indicates No Risk (0-24 pts). Assessment: 12:48 General: Appears in no apparent distress. uncomfortable, Behavior is calm, cooperative. vg1 General: States most pain is in the Right axilla, but also has an abscess in the Left axilla and groin area.. Pain: Complains of pain in right axilla Pain currently is 8 out of 10 on a pain scale. Neuro: Level of Consciousness is awake, alert, obeys commands, Oriented to person, place, time, situation. Cardiovascular: Patient's skin is warm and dry. Respiratory: Airway is patent Respiratory effort is even, unlabored. Derm: Abscess located on DEEPA axilla and groin area. Musculoskeletal: Circulation, motion, and sensation intact. 13:19 Derm: abscess to left and right axilla area, left is size of quarter and draining, ec1 right is size of half dollar and no drainage noted. 13:49 Reassessment: Received VO from Oscar PICKERING to administer Stanford 5mg/ 325 mg PO x1 and vg1 Ibuprofen 400 mg PO x1. Vital Signs: 12:40 BP 150 / 86; Pulse 86; Resp 17; Temp 97.0; Pulse Ox 100% ; Weight 83.91 kg; Height 5 ll1 ft. 5 in. (165.10 cm); Pain 8/10; 12:58 BP 139 / 71; Pulse 70; Resp 18; Pulse Ox 100% on R/A; vg1 14:05 BP 111 / 60; Pulse 69; Resp 16 S; Pulse Ox 100% on R/A; ec1 12:40 Body Mass Index 30.79 (83.91 kg, 165.10 cm) ll1 ED Course: 12:33 Patient arrived in ED. ds1 12:42 Triage completed. ll1 12:43 Arm band placed on Patient placed in an exam room, on a stretcher. ll1 12:45 Pina Nagel, RN is Primary Nurse. vg1 12:58 Patient has correct armband on for positive identification. Placed in gown. Bed in low vg1 position. Call light in reach. Side rails up X 1. 13:07 Primary Nurse role handed off by Pina Nagel, RN ec1 13:07 Meme Boo, ROSALIE is Primary Nurse. ec1 13:07 Catracho Khoury PA is PHCP. [facility] 13:07 Johnny Rosario MD is Attending Physician. [facility] 14:06 Mark Antonio MD is Referral Physician. [facility] 14:08 Wound care: to lanced abscess to right and left axilla. Dressing applied. ec1 14:21 Assist provider with I \T\ D: of an abscess on right left axilla. Patient did not have IV ec1 access during this emergency room visit. Administered Medications: 13:42 Drug: Lidocaine (1 %) 20 ml Volume: 20 ml; Route: Infiltration; vg1 13:51 Drug: Ibuprofen 400 mg Route: PO; vg1 14:21 Follow up: Response: No adverse reaction ec1 13:51 Drug: Stanford 5 mg-325 mg 1 tabs Route: PO; vg1 14:20 Follow up: Response: No adverse reaction ec1 Outcome: 14:08 Discharge ordered by . jmm 14:21 Discharged to home ambulatory. ec1 14:21 Discharged to home ambulatory. 14:21 Condition: good 14:21 Discharge instructions given to patient, Instructed on discharge instructions, follow up and referral plans. Demonstrated understanding of instructions, follow-up care, medications, Prescriptions given X 2. 14:22 Patient left the ED. ec1 Signatures: Catracho Khoury PA PA jmm Sanford, Demi ds1 Pina Nagel RN RN vg1 Lena Riojas RN RN ll1 Meme Boo RN RN ec1 Corrections: (The following items were deleted from the chart) 12:59 12:58 Patient has correct armband on for positive identification. Placed in gown. Bed vg1 in low position. Side rails up X 1. vg1
--- NOTE | 2020-10-11 14:09 | EDPHYS ---
Physician Documentation [facility] Name: Radha Ha Age: 45 yrs Sex: Female : 1975 Arrival Date: 10/11/2020 Time: 12:33 Bed 26 Private MD: ED Physician Johnny Rosario HPI: 10/11 13:36 This 45 yrs old Female presents to ER via Ambulatory with complaints of jmm Abscess. 13:36 The patient presents with an abscess of the right axilla. Onset: The symptoms/episode jmm began/occurred gradually, 1 week(s) ago. Possible cause(s): hidradenitis supprativa. Associated signs and symptoms: Pertinent negatives: fever. Modifying factors: the symptoms are alleviated by nothing, the symptoms are aggravated by nothing. This is a 45 year old female with ahistory of hidradentitis supprativa that presents to the ED with complaints of increased swelling in the right and left axilla. Denies fever. Has had similar episodes in the past. . Historical: - Allergies: 12:43 PENICILLINS; ll1 12:43 Cephalexin; ll1 - PMHx: 12:43 Hidradenitis Suppurativa; MRSA; ll1 - PSHx: 12:43 cervical biopsy-removed cells; ll1 - Immunization history:: Flu vaccine is not up to date. - Social history:: Smoking status: Patient denies any tobacco usage or history of. ROS: 13:36 Constitutional: Negative for fever, chills, and weight loss, Cardiovascular: Negative jmm for chest pain, palpitations, and edema, Respiratory: Negative for shortness of breath, cough, wheezing, and pleuritic chest pain. 13:36 Skin: Positive for abscess. 13:36 All other systems are negative. Exam: 13:36 Constitutional: This is a well developed, well nourished patient who is awake, alert, jmm and in no acute distress. Head/Face: atraumatic. Eyes: EOMI, no conjunctival erythema appreciated ENT: Moist Mucus Membranes Neck: Trachea midline, Supple Chest/axilla: Normal chest wall appearance and motion. Cardiovascular: Regular rate and rhythm. No edema appreciated Respiratory: Normal respirations, no respiratory distress appreciated Abdomen/GI: Non distended, soft Back: Normal ROM 13:36 MS/ Extremity: Moves all extremities, no obvious deformities appreciated, no edema noted to the lower extremities Neuro: Awake and alert, normal gait Psych: Behavior is normal, Mood is normal, Patient is cooperative and pleasant 13:36 Skin: abscess noted to the right and left axilla. Vital Signs: 12:40 BP 150 / 86; Pulse 86; Resp 17; Temp 97.0; Pulse Ox 100% ; Weight 83.91 kg; Height 5 ll1 ft. 5 in. (165.10 cm); Pain 8/10; 12:58 BP 139 / 71; Pulse 70; Resp 18; Pulse Ox 100% on R/A; vg1 14:05 BP 111 / 60; Pulse 69; Resp 16 S; Pulse Ox 100% on R/A; ec1 12:40 Body Mass Index 30.79 (83.91 kg, 165.10 cm) ll1 Procedures: 14:00 I \T\ D: Incision and drainage was performed for an abscess of the right axilla. Prepped [facility] with Betadine, Anesthetized with 5 ml's 1% Lidocaine. Incised with #11 blade. Drained moderate amount purulent fluid. Packed with iodoform gauze, Dressing: sterile 4x4 gauze, the patient tolerated the procedure well. MDM: 13:14 Patient medically screened. [facility] 14:00 Data reviewed: vital signs, nurses notes. Counseling: I had a detailed discussion with [facility] the patient and/or guardian regarding: the historical points, exam findings, and any diagnostic results supporting the discharge/admit diagnosis, the need for outpatient follow up, to return to the emergency department if symptoms worsen or persist or if there are any questions or concerns that arise at home. ED course: Patient is alert and non toxic in appearance in the ED. No signs of resp distress. Patient advised to folllow up with gen surgery and otherwise given strict return precautions. Patient understood and agree with the plan of care. . 10/11 13:15 Order name: Incision \T\ Drainage Setup; Complete Time: 13:23 [facility] Administered Medications: 13:42 Drug: Lidocaine (1 %) 20 ml Volume: 20 ml; Route: Infiltration; vg1 13:51 Drug: Ibuprofen 400 mg Route: PO; vg1 14:21 Follow up: Response: No adverse reaction ec1 13:51 Drug: [place] 5 mg-325 mg 1 tabs Route: PO; vg1 14:20 Follow up: Response: No adverse reaction ec1 Disposition: 10/11/20 14:08 Discharged to Home. Impression: Cutaneous abscess of right axilla, Cutaneous abscess of left axilla. - Condition is Stable. - Discharge Instructions: Skin Abscess, Incision and Drainage, Incision and Drainage, Care After. - Prescriptions for Tylenol- Codeine #3 300-30 mg Oral Tablet - take 1 tablet by ORAL route every 4-6 hours As needed; 20 tablet. Bactrim DS 800- 160 mg Oral Tablet - take 1 tablet by ORAL route every 12 hours for 10 days; 20 tablet. - Medication Reconciliation Form, Thank You Letter, Antibiotic Education, Prescription Opioid Use, Work release form form. - Follow up: Mark Antonio MD; When: As needed; Reason: Recheck today's complaints, Continuance of care, Re-evaluation by your physician. Addendum: 10/14/2020 06:01 Co-signature as Attending Physician, Johnny Rosario MD I agree with the assessment and k dr plan of care. Signatures: Johnny Rosario MD MD [facility] Catracho Khoury PA PA jmPina Perez RN RN vg1 Lena Riojas RN RN ll1 Meme Boo RN RN ec1 Corrections: (The following items were deleted from the chart) 10/11 14:22 14:08 10/11/2020 14:08 Discharged to Home. Impression: Cutaneous abscess of right ec1 axilla; Cutaneous abscess of left axilla. Condition is Stable. Forms are Medication Reconciliation Form, Thank You Letter, Antibiotic Education, Prescription Opioid Use. Follow up: Mark Antonio; When: As needed; Reason: Recheck today's complaints, Continuance of care, Re-evaluation by your physician. melly
[2020-10-11 15:14] VITALS: TEMP 97; O2SAT 100
[2020-10-11 15:16] VITALS: BP 111/60
== END 2020-10-11 14:22 | disposition home or self-care (01) ==
LOC: ER 12:28
PROC: 0J9D0ZZ Drainage of Right Upper Arm Subcutaneous Tissue and Fascia, Open Approach (ICD-10-PCS; principal; 2020-10-11)
DX: L02.411 Cutaneous abscess of right axilla (principal); L02.412 Cutaneous abscess of left axilla; Z88.0 Allergy status to penicillin; Z88.1 Allergy status to other antibiotic agents
CPT/HCPCS: 99284

== ENCOUNTER 2022-10-26 10:51 | Day surgery (SDC) | payer OTHER ==
--- NOTE | 2022-10-26 10:45 | RAD REPORT ---
EXAM DESCRIPTION: Prema Foley (2 Views)10/26/2022 10:40 am CLINICAL HISTORY: pre op pending hidradenitis removal COMPARISON: 2019 FINDINGS: The lungs appear clear of acute infiltrate. The heart is normal size IMPRESSION: No acute abnormalities displayed
[2022-10-26 11:18] LABS: Absolute Lymphocytes (CBC) 2.1 K/uL (0.7-4.9); Hematocrit 35.8 % (36.0-45.0); MCV 86.1 fL (80-100); RBC Red Blood Cell Count 4.16 M/uL (3.86-4.86)
[2022-10-26] MEDS ORDERED: SCOPOLAMINE HYDROBROMIDE PATCH TD ONE (11:36)
[2022-10-26] MEDS ORDERED: ONDANSETRON 4 MG/2 ML VIAL ONE ×2 (11:36→13:03)
[2022-10-26 11:48] LABS: Potassium 4.4 mmol/L (3.5-5.1)
[2022-10-26] MEDS ORDERED: Ringers Lactate 1,000 ML IV ONE (11:49)
[2022-10-26] MEDS ORDERED: propofoL 200 MG/20 ML VIAL IV ONE (13:01)
[2022-10-26] MEDS ORDERED: MIDAZOLAM HCL 2 MG/2 ML INJ ONE (13:02)
[2022-10-26] MEDS ORDERED: FENTANYL CITR 100 MCG/2 ML ONE (13:02)
[2022-10-26] MEDS ORDERED: LIDOCAINE 2% MPF 5 ML VIAL ONE (13:03)
[2022-10-26] MEDS ORDERED: CIPROFLOXACIN 400mg IV 400 MG/200 ML BAG IV ONE (13:05)
[2022-10-26] MEDS: SILVER SULFADIAZINE 1% 25 GM TOP ONE ×2 (14:16→14:24)
--- NOTE | 2022-10-26 14:40 | P.BOP ---
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 Left axilla 11x10 cm Secondary procedure: 2. Left groin 7x3 cm, 3. Right groin 3x2 cm Estimated blood loss: <30cc Specimen: Supurative hydradenitis Findings: Supurative hydradenitis Anesthesia: General Complications: None Transferred to: Recovery Room Condition: Good
[2022-10-26] MEDS: HYDROMORPHONE HCL 1 MG/ML INJ ONE ×4 (14:45→15:07)
[2022-10-26 16:08] VITALS: BP 111/70; TEMP 97.3; O2SAT 96
[2022-10-26] MEDS ORDERED: HYDROCODONE/APAP 5/325 MG TAB ONE (16:13)
--- NOTE | 2022-10-26 16:26 | EKG ---
Test Date: 2022-10-26 Test Time: 09:19:23 [employer] Manager: DAVID MEASUREMENT RESULTS: Intervals: Rate: 53 NE: 136 QRSD: 94 QT: 430 QTc: 403 [place]: P: 64 NE: 136 QRS: 76 T: 73 INTERPRETIVE STATEMENTS: Sinus bradycardia Incomplete right bundle branch block Borderline ECG No previous ECG available for comparison Electronically Signed On 10-26-22 16:25:36 CDT by Jace Wilson
--- NOTE | 2022-10-26 18:01 | DS ---
Date of Discharge: 10/26/2022 Diagnosis: Suppurative hidradenitis. Procedure: Wide excision of suppurative hidradenitis, left axilla, left groin and right groin. Disposition: Home. Activity: As tolerated. No heavy lifting. Plan: Follow in my office this Wednesday. Call for appointment. Silvadene to the open ar eas with dry gauze on top daily. DARIRCK/MODL Voice ID: [id number] Report ID: [id number]
--- NOTE | 2022-10-26 18:46 | OP ---
Date of Procedure: 10/26/2022 Surgeon: Mark Antonio MD Preoperative Diagnosis: Suppurative hidradenitis, left axilla and bilateral groins. Postoperative Diagnosis: Suppurative hidradenitis, left axilla and bilateral groins. Procedure: Wide excision of suppurative hidradenitis; 1.Left axilla 11 x 10 cm. 2.Left groin 7 x 37 x 3 cm. 3.Right groin 3 x 2 cm. Anesthesia: General plus local. Specimen: Suppurative hidradenitis. Findings: Suppurative hydradenitis. Complications: None. Dressings: Silvadene dressings to all the areas. Indication: This is the case of a 47-year-old patient with suppurative hidradenitis in all these are as mentioned. She also has bilateral breasts and also right axilla on top of what we are doing today , but those are under control. She wants to remove the 1 that is just draining purulent discharge wi th infection. She has been on antibiotics for few days already and is still draining purulent discha rge, so she wants that area excised. She understands the benefits, alternatives, and risks of this e xcision, which include, but not limited to infection, bleeding, damage to adjacent structures, anesth esia complication, nonhealing wound, ND, and even . She also understands she will be doing dres sing changes since we are not going to left this to close by secondary intention. She signed the con sent. Procedure In Detail: The patient was brought to the operating room, placed in supine position. Anes thesia was induced without complication. Areas of resection were marked by me and the patient in the holding room. We proceeded to do the first left axilla, then right groin and left groin all of them using the same technique, which consisted incision around the area in a size that we described above and then removed the skin and some of the subcutaneous tissue with the specimen leaving a large area to expose. Hemostasis was obtained and then the areas were covered with Silvadene. Each 1 was done individually. See above for size. The patient tolerated the procedure well. We obtained hemostasi s and injected local anesthetic before covering the area with Silvadene. The patient tolerated the p rocedure well. The patient was sent to recovery in stable condition. DARRICK/MODL Voice ID: [id number] Report ID: [id number]
== END 2022-10-26 17:00 | disposition home or self-care (01) ==
LOC: OR 10:51
PROVIDERS: ATTEND Surgery
PROC: 0JBF0ZZ Excision of Left Upper Arm Subcutaneous Tissue and Fascia, Open Approach (ICD-10-PCS; principal; 2022-10-26 14:45)
PROC: 0JBC0ZZ Excision of Pelvic Region Subcutaneous Tissue and Fascia, Open Approach (ICD-10-PCS; 2022-10-26 14:45)
DX: L73.2 Hidradenitis suppurativa (principal)
CPT/HCPCS: 93005; 85025; 80048; 36415; 84703; 88304; 71046; 11450; 11462; J2704; J2001; J2250; J3010; J1170 ×2; J2405 ×2; J0744; J7120

== ENCOUNTER 2024-04-19 11:50 | Emergency (ER) | payer OTHER ==
--- OUTSIDE RECORDS SUMMARY | 2024-04-19 11:54 | XMS REPORT | Continuity of Care Document ---
Author Name Unknown Address [address] [facility]. [address] [place] [address] [facility] thconnect Address [address] [facility]. [address] [place] [address] Care Team Providers Care Manager Laboratory Name Role Phone Merry William MD Primary Care Physician [phone] Gaurang Grey MD Attending Clinician [phone] Merry William MD Attending Clinician [phone] BALTAZAR MURRY Attending Clinician Unavailable Baltazar Murry MD Attending Clinician [phone] [facility] Attending Clinician Unavailable Kristi Hernandez MD Attending Clinician [phone] KRISTI HERNANDEZ Attending Clinician Unavailable MERRY WILLIAM Attending Clinician Unavailable 2, [facility] Attending Clinician Unavailable Doctor Unassigned, [place] Attending Clinician U navailable MITCHELL MCCARTHY Attending Clinician Unavailable Mitchell Mccarthy MD Attending Clinician [phone] MERRY WILLIAM Admitting Clinician Unavailable Payers Payer Name Policy Type Policy Number Effective Date Expirati on Date Source Problems Condition Name Condition Details Condition Category Status Onset Date Resolution Date Last Treatment Date Treating Clinician Comments Source Numbness and tingling in both hands Numbness and tingling in both hands Disease Active 11-12 00:00: 00 [facility] Hidradenit is suppurativ a Hidradenit is suppurativ a Disease Active 11-12 00:00: 00 [facility] Mild major depression Mild major depression Disease Active 00:00: 00 [facility] Anxiety, generalize d Anxiety, generalize d Disease Active 3 00:00: 00 [facility] Encounter for screening mammogram for malignant neoplasm of breast Encounter for screening mammogram for malignant neoplasm of breast Disease Active 3 00:00: 00 [facility] Panic attacks Panic attacks Disease Active 3 00:00: 00 [facility] 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 Disease Active 3 00:00: 00 [facility] Primary insomnia Primary insomnia Disease Active 11-12 00:00: 00 [facility] Need for hepatitis C screening test Need for hepatitis C screening test Disease Active 11-12 00:00: 00 [facility] S/P LEEP of cervix S/P LEEP of cervix Disease Active 2019-0818 00:00: 00 [facility] S/P LEEP of cervix S/P LEEP of cervix Disease Active 2019-08 118 00:00: 00 [facility] Moderate dysplasia of cervix (CLINT II) Moderate dysplasia of cervix (CLINT II) Disease Active 2019-08 0-26 00:00: 00 [facility] Papanicola ou smear of cervix with high grade squamous intraepith elial lesion (HGSIL) Papanicola ou smear of cervix with high grade squamous intraepith elial lesion (HGSIL) Disease Active -17 00:00: 00 [facility] Cervical high risk human papillomav irus (HPV) DNA test positive Cervical high risk human papillomav irus (HPV) DNA test positive Disease Active 9-17 00:00: 00 [facility] Obesity (BMI 30-39.9) Obesity (BMI 30-39.9) Disease Active 8-10 00:00: 00 [facility] Paresthesi a of arm Paresthesi a of arm Problem Active [facility] Depression with anxiety Depression with anxiety Problem Active [facility] Depression Depression Problem Active [facility] Anxiety Anxiety Problem Active [facility] Seasonal allergies Seasonal allergies Problem Active [facility] Allergies, Adverse Reactions, Alerts Allergy Name Allergy Type Status Severity Reaction(s) Onset Date Inactive Date Treating Clinician Comments Source Cephalos porins Propensi ty to adverse reaction s Active Hives - 00:00: 00 [facility] Penicill ins Propensi ty to adverse reaction s Active Anaphylaxis - 00:00: 00 [facility] Cephalos porins Propensi ty to adverse reaction s Active Hives 08-16 00:00: 00 [facility] Penicill ins Propensi ty to adverse reaction s Active Anaphylaxis 08-16 00:00: 00 [facility] PCN Adverse Reaction [facility] [place] Adverse Reaction Active [facility] Adverse Reaction Active [facility] Adverse Reaction Active [facility] Social History Social Habit Start Date Stop Date Quantity Comments Source Exposure to SARS-CoV-2 (event) 2022-03-08 00:00:00 2022-03-18 09:30:00 Not sure [facility] Tobacco use and exposure 2022-03-18 00:00:00 2022-03-18 00:00:00 Smokeless tobacco non-user [facility] Alcohol intake 2022-03-18 00:00:00 2022-03-18 00:00:00 Ex-drinker (finding) [facility] Sex Assigned At 1975 00:00:00 1975 00:00:00 [facility] Smoking Status Start Date Stop Date Source Never smoked tobacco [facility] Medications Ordered Medication Name Filled Medication Name Start Date Stop Date Current Medication? Ordering Clinician Indication Dosage Frequency Signature (SIG) Comments Components Source adalimumab 80 mg/0.8 mL PnKt 2021-08 00:00: 00 Yes [id number] 80mg inject 1 Pen under the skin every 2 (two) weeks. [facility] adalimumab 80 mg/0.8 mL PnKt 02-20 00:00: 00 06-22 00:00 :00 No [id number] 80mg inject 1 Pen under the skin every 2 (two) weeks. [facility] Venlafaxine 37.5 mg TR24 02-13 00:00: 00 Yes [id number] 1{tbl} Take 1 tablet by mouth daily. [facility] doxycycline hyclate 100 mg tablet 02-13 00:00: 00 Yes [id number] 100mg Take 1 tablet by mouth 2 (two) times daily. [facility] Tetracyclin e HCl 3 % Oint 02-13 00:00: 00 Yes [id number] Apply to area(s) every Wednesday, Wednesday and Wednesday. Apply 2g to affected areas MWF [facility] traZODone 50 mg tablet 02-13 00:00: 00 Yes [id number] 50mg Take 1 tablet by mouth at bedtime. [facility] amitriptyli ne 25 mg tablet 02-13 00:00: 00 Yes [id number] 25mg Take 1 tablet by mouth at bedtime. [facility] clindamycin 1 % topical solution 11-12 00:00: 00 Yes [id number] Apply to area(s) 2 (two) times daily. [facility] dapsone-cathy cinamide 6-4 % Gel 11-12 00:00: 00 Yes [id number] 4g Apply 4 g to area(s) daily. [facility] Benzethoniu m Chloride (ANTIBACTER IAL SOAP, BENZETHON,) 0.13 % Clsr 11-12 00:00: 00 Yes [id number] Apply to area(s) daily. [facility] sulfamethox azole-trime thoprim (BACTRIM DS) 800-160 mg per tablet 11-12 00:00: 00 Yes [id number] 1{tbl} Take 1 tablet by mouth 2 (two) times daily. [facility] Paroxetine HCl Paroxetine HCl 2018-08 00:00: 00 Yes Lyric Siegel 1 tablet in the morning Common [facility] Encounters Start Date/Time End Date/Time Encounter Type Admission Type Attending [facility] Facility Care Department Encounter ID Source 2022-06-19 00:00:00 2022-06-19 00:00:00 Telephone [facility]aurang [facility] 1.840.114 350.1.13.10 4.2.7.2.686 [id number] [facility] 2022-06-17 00:00:00 2022-06-17 00:00:00 Telephone Gaurang Grey [facility] 1..114 350.1.13.10 4.2.7.2.686 [id number] [facility] 2022-03-18 14:20:56 2022-03-18 23:59:00 Hospital Encounter Merry canales [facility] 1.840.114 350.1.13.10 4.2.7.2.686 [id number] [facility] 2022-03-18 14:19:34 2022-03-18 14:19:34 Hospital Encounter [facility] 1.840.114 350.1.13.10 4.2.7.2.686 [id number] [facility] 2022-03-18 09:45:00 2022-03-18 10:19:40 Outpatient BALTAZAR RODRIGUEZ [facility] [id number] [facility] 2022-03-18 09:45:00 2022-03-18 10:19:40 Office Visit Gaurang Grey Lindy Skye [facility] 1..114 350.1.13.10 4.2.7.2.686 [id number] [facility] 2022-03-18 00:00:00 2022-03-18 00:00:00 Telephone Gaurang Grey [facility] 1..114 350.1.13.10 4.2.7.2.686 [id number] [facility] 2022-02-20 00:00:00 2022-02-20 00:00:00 Telephone Gaurang Grey [facility] 1..114 350.1.13.10 4.2.7.2.686 [id number] [facility] 2022-02-18 12:45:00 2022-02-18 13:00:00 Applications Architect Visit [facility] 1..114 350.1.13.10 4.2.7.2.686 [id number] [facility] 2022-02-18 11:15:00 2022-02-18 12:42:12 Outpatient KRISTI CEVALLOS [facility] [id number] [facility] 2022-02-18 11:15:00 2022-02-18 12:42:12 Office Visit Gaurang Grey [facility] 1..114 350.1.13.10 4.2.7.2.686 [id number] [facility] 2022-02-18 11:15:00 2022-02-18 12:42:12 Outpatient KRISTI CEVALLOS [facility] [id number] [facility] 2022-02-13 09:40:00 2022-02-13 10:21:03 Office Visit Merry William [facility] 1..114 350.1.13.10 4.2.7.2.686 [id number] [facility] 2022-02-13 09:40:00 2022-02-13 10:21:03 Outpatient R MERRY WILLIAM [facility] [id number] [facility] 2022-02-13 09:40:00 2022-02-13 09:40:00 Outpatient R MERRY WILLIAM [facility] [id number] [facility] 2022-02-13 09:40:00 2022-02-13 09:40:00 Outpatient R [facility] [id number] [facility] 2022-02-08 00:00:00 2022-02-08 00:00:00 Telephone Merry William [facility] 1..840.114 350.1.13.10 4.2.7.2.686 [id number] [facility] 2022-01-15 14:32:59 2022-01-15 23:59:00 Outpatient R [facility] [id number] [facility] 2022-01-15 14:32:59 2022-01-15 23:59:00 Hospital Encounter [facility] 1..840.114 350.1.13.10 4.2.7.2.686 [id number] [facility] 2021-12-11 10:40:00 2021-12-11 10:40:00 Outpatient R [facility] [id number] [facility] 2021-12-04 08:00:00 2021-12-04 08:15:00 Applications Architect Visit 2, Adc [facility] 1..840.114 350.1.13.10 4.2.7.2.686 [id number] [facility] 2021-12-04 08:00:00 2021-12-04 08:00:00 Outpatient R JUSTINEJUWANMERRY [facility] [id number] [facility] 2021-12-04 08:00:00 2021-12-04 08:00:00 Outpatient R [facility] [id number] [facility] 2021-11-12 10:00:00 2021-11-12 11:22:22 Outpatient R JUSTINECECILYMERRY DUNAWAY [facility] [id number] [facility] 2021-11-12 10:00:00 2021-11-12 11:22:22 Office Visit Merry William [facility] 1.2.840.114 350.1.13.10 4.2.7.2.686 [id number] [facility] 2021-11-12 00:00:00 2021-11-12 00:00:00 Orders Only Doctor Unassigned, [place] [facility] 1.2.840.114 350.1.13.10 4.2.7.2.686 [id number] [facility] 2020-10-15 15:00:00 2020-10-15 15:00:00 Outpatient R MITCHELL MCCARTHY [facility] [id number] [facility] 2020-07-03 15:12:07 2020-07-03 16:06:29 Office Visit Mitchell Mccarthy [facility] 1.2.840.114 350.1.13.10 4.2.7.2.686 [id number] 2020-07-03 15:00:00 2020-07-03 15:00:00 Outpatient R MITCHELL MCCARTHY [facility] [id number] [facility] 2020-07-03 15:00:00 2020-07-03 15:00:00 Outpatient R MITCHELL MCCARTHY [facility] [id number] [facility] 2020-06-10 13:30:00 2020-06-10 13:30:00 Outpatient [facility] [id number] [facility] 2020-05-02 15:00:00 2020-05-02 15:00:00 Outpatient [facility] [id number] [facility] 2020-04-08 16:00:00 2020-04-08 16:00:00 Outpatient [facility] [id number] [facility] 2020-03-29 15:15:00 2020-03-29 15:15:00 Outpatient [facility] [id number] [facility] 2020-03-25 14:00:00 2020-03-25 14:00:00 Outpatient [facility] [id number] [facility] 2019-06-27 16:15:00 2019-06-27 16:15:00 Outpatient [facility] [id number] [facility] 2019-06-09 09:48:00 2019-06-09 09:48:00 Outpatient [facility] [id number] [facility] 2019-06-08 09:00:00 2019-06-08 09:00:00 Outpatient [facility] [id number] [facility]
[2024-04-19 13:03] LABS: Barbiturates NEGATIVE (NEGATIVE); Benzodiazepines NEGATIVE (NEGATIVE); Cocaine NEGATIVE (NEGATIVE); METHAMPHETAM NEGATIVE (NEGATIVE); Methadone NEGATIVE (NEGATIVE); Opiates NEGATIVE (NEGATIVE); Phencyclidine NEGATIVE (NEGATIVE); THC Cannibis POSITIVE (NEGATIVE)
[2024-04-19 13:04] LABS: Specific Gravity 1.011 (1.005-1.030); Sqamous Epithelial <5 /HPF (None Seen); Urine Bacteria <20 /HPF (<20); Urine Bilirubin NEGATIVE (Negative); Urine Blood Trace (Negative); Urine Clarity Turbid (Clear); Urine Color Colorless (Yellow); Urine Culture Reflex Order NOT NEEDED; Urine Glucose NEGATIVE (Negative); Urine Ketones NEGATIVE (Negative); Urine Microscopic Reflex YN ORDER UMIC; Urine Nitrite NEGATIVE (Negative); Urine Protein NEGATIVE (Negative); Urine RBC <5 /HPF (None Seen); Urine Urobilinogen Normal (Normal); Urine WBC <5 /HPF (<5); Urine pH 6.5 (5.0-7.0)
[2024-04-19 13:11] LABS: Absolute Eosinophils 0.1 K/uL (0-0.5); Absolute Lymphocytes (CBC) 1.8 K/uL (0.7-4.9); Absolute Monocytes 0.3 K/uL (0.1-1.3); Basophils % 0.3 % (0-1.3); Hematocrit 36.7 % (36.0-45.0); Lymphocytes % 28.8 % (15.3-44.8); MCH 28.8 pg (27.0-35.0); MCHC 32.7 g/dL (32.0-36.0); MCV 88.1 fL (80-100); MPV 6.7 fL (7.6-11.3); Monocytes % 5.3 % (3.3-12.3); Neutrophils % 64.6 % (41.7-73.7); Platelets 423 thou/uL (152-406); RBC Red Blood Cell Count 4.17 M/uL (3.86-4.86); Red Cell Distribution Width 14.3 % (12.1-15.2)
[2024-04-19 13:27] LABS: Albumin 3.9 g/dL (3.4-5.0); Anion Gap 8.2 mEq/L (5.0-15.0); Bilirubin Total 0.2 mg/dL (0.2-1.0); Globulin 3.9 g/dL (2.3-3.5); Magnesium 2.1 mg/dL (1.6-2.4); Potassium 4.2 mEq/L (3.5-5.1); Protein, Total 7.8 g/dL (6.4-8.2); Troponin High Sensitivity 4.3 pg/mL (<58.9)
[2024-04-19] MEDS ORDERED: KETOROLAC 30 MG/ML INJ ONE (13:38)
[2024-04-19] MEDS ORDERED: NA CHLORIDE 0.9% 100 ML ONE (13:39)
[2024-04-19] MEDS ORDERED: DIPHENHYDRAMINE 50 MG/ML VIAL ONE (13:39)
[2024-04-19] MEDS ORDERED: METOCLOPRAMIDE 10 MG/2mL INJ ONE (13:39)
--- NOTE | 2024-04-19 15:20 | ER ---
Nurse's Notes [facility] Name[facility] Radha Ha Age: 48 yrs Sex: Female : 1975 Arrival Date: 04/19/2024 Time: 11:50 Bed 4 Private MD: Diagnosis: Headache;Conjunctival injection, bilateral;Paresthesia of left lower face;Blurred vision Presentation: 04/19 11:54 Chief complaint: Patient states: headache, blurry vision and eye redness x1 mo. worse kc6 over the last week. went to urgent care this AM and they referred her here. denies slurred speech, weakness, or numbness. Coronavirus screen: At this time, the client does not indicate any symptoms associated with coronavirus-19. Ebola Screen: No symptoms or risks identified at this time. Initial Sepsis Screen: Does the patient meet any 2 criteria? No. Patient's initial sepsis screen is negative. Does the patient have a suspected source of infection? No. Patient's initial sepsis screen is negative. Risk Assessment: Do you want to hurt yourself or someone else? Patient reports no desire to harm self or others. Onset of symptoms was April 19, 2024 at 06:30. 11:54 Method Of Arrival: Ambulatory kc6 11:54 Acuity: CARLYN 3 kc6 APPLICATION DESIGN ENGINEER: 11:56 LMP 04/14/2024, unknown kc6 Historical: - Allergies: 11:56 Cephalexin; kc6 11:56 PENICILLINS; kc6 - PMHx: 11:56 MRSA; Hidradenitis Suppurativa; kc6 - PSHx: 11:56 None; kc6 - Immunization history:: Client reports having NOT received the Covid vaccine. Flu vaccine is not up to date. - Infectious Disease History:: Denies. - Social history:: Smoking status: Reported history of juuling and/or vaping. Screenin:08 [facility] ED Fall Risk Assessment (Adult) History of falling in the last 3 months, me1 including since admission No falls in past 3 months (0 pts) Confusion or Disorientation No (0 pts) Intoxicated or Sedated No (0 pts) Impaired Gait No (0 pts) Mobility Assist Device Used No (0 pt) Altered Elimination No (0 pt) Score/Fall Risk Level 0 - 2 = Low Risk Maintained a safe environment, Provided non-skid footwear, Hourly rounding (assess needs \\T\\ fall precautionary measures) done. Abuse screen: Denies threats or abuse. Nutritional screening: No deficits noted. Tuberculosis screening: No symptoms or risk factors identified. Assessment: 12:08 General: Appears uncomfortable, well groomed, well developed, well nourished, Behavior me1 is cooperative, appropriate for age, flat, Reports Headache behind right eye that has moved to behind both eyes in the past week or so. Redness noted to right eye several weeks ago that recently started in the left eye as well. States she has some blurred vision and some confusion/"feeling detached" lately. Pain: Complains of pain in forehead Pain does not radiate. Pain currently is 6 out of 10 on a pain scale. Quality of pain is described as aching, Pain began gradually, about a month ago Is continuous. Neuro: Level of Consciousness is awake, alert, obeys commands, Oriented to person, place, time, situation, Appropriate for age. Neuro: Reports blurred vision headache frontal area. Cardiovascular: Patient's skin is warm and dry. Respiratory: Airway is patent Respiratory effort is even, unlabored, Respiratory pattern is regular, symmetrical. GI: No signs and/or symptoms were reported involving the gastrointestinal system. : No signs and/or symptoms were reported regarding the genitourinary system. EENT: Eyes Sclera/Cornea are reddened in inner aspect of conjuctiva of right eye and inner aspect of conjunctiva of left eye. Derm: Skin is intact, is healthy with good turgor, Skin is pink, warm \\T\\ dry. Musculoskeletal: No signs and/or symptoms reported regarding the musculoskeletal system. 12:08 Neuro: Graphic Design Manager are equal bilaterally Moves all extremities. Full function Gait is steady, me1 Speech is normal, Facial symmetry appears normal, Pupils are PERRLA, Intact. 13:50 Reassessment: Patient appears in no apparent distress at this time. Patient and/or ph family updated on plan of care and expected duration. Pain level reassessed. Patient is alert, oriented x 3, equal unlabored respirations, skin warm/dry/pink. Vital Signs: 11:54 BP 147 / 85; Pulse 80; Resp 16 S; Temp 98.4(O); Pulse Ox 100% on R/A; Weight 81.65 kg; kc6 Height 5 ft. 5 in. (R); Pain 7/10; 13:00 BP 135 / 92; Pulse 60; Resp 15; Pulse Ox 100% on R/A; me1 13:50 BP 143 / 89; Pulse 58; Resp 18; Pulse Ox 100% on 15 lpm Non-rebreather mask; FiO2 100 %;ph 15:00 BP 128 / 89; Pulse 58; Resp 18; Temp 97.9; Pulse Ox 98% on R/A; ph 11:54 Body Mass Index 29.95 (81.65 kg, 165.1 cm) kc6 11:54 Pain Scale: Adult kc6 Visual Acuity: 15:37 Left Eye Visual acuity 20/30, Pupil size 4 mm, Normal; Right Eye Visual acuity 20/25, ph Pupil size 4 mm, Normal; Both Eyes Visual acuity 20/25; Without Lenses; Newberg Coma Score: 13:38 Eye Response: spontaneous(4). Motor Response: obeys commands(6). Verbal Response: sd2 oriented(5). Total: 15. NIH Stroke Scale Scores: 12:16 NIHSS Score: 0 mi1 ED Course: 11:51 Patient arrived in ED. im 11:53 Nava Ritter MD is Attending Physician. sd2 11:56 Triage completed. [facility] 11:56 Arm band placed on. [facility] 12:07 Nisa Alfredo, RN is Primary Nurse. me1 12:08 Patient has correct armband on for positive identification. Bed in low position. Call me1 light in reach. Side rails up X2. Provided Education on: POC. Verbalized understanding. . Client placed on continuous cardiac and pulse oximetry monitoring. NIBP monitoring applied. Pulse ox on. NIBP on. 12:08 No provider procedures requiring assistance completed. me1 12:49 CT Head Brain wo Cont In Process Unspecified. EDMS 13:03 Initial lab(s) drawn, by mi, sent to lab. Urine collected: clean catch specimen, clear, ph EKG done, by ED staff, reviewed by Nava Ritter MD. Inserted saline lock: 22 gauge in right antecubital area, using aseptic technique. Blood collected. Flushed with 10 mL NS. 13:51 Oxygen administration via non-rebreather mask per Dr Ritter for possible cluster ph headache. 13:56 Primary Nurse role handed off by Nisa Alfredo, RN ph 13:56 Alice Augustin, ROSALIE is Primary Nurse. ph 15:17 Bentley Recinos MD is Referral Physician. sd2 15:48 IV discontinued, intact, bleeding controlled, No redness/swelling at site. Pressure ph dressing applied. Administered Medications: 13:49 Drug: Ketorolac IVP 15 mg IVP once Route: IVP; Site: right antecubital; ph 15:47 Follow up: Response: No adverse reaction ph 13:49 Drug: metoCLOPramide IVP 10 mg IVP once; over 1 to 2 minutes Route: IVP; Site: right ph antecubital; 15:48 Follow up: Response: No adverse reaction ph 13:49 Drug: diphenhydrAMINE IVP 25 mg IVP once Route: IVP; Site: right antecubital; ph 15:48 Follow up: Response: No adverse reaction ph Medication: 12:08 VIS not applicable for this client. me1 Outcome: 15:19 Discharge ordered by . sd2 15:48 Discharged to home ambulatory, with significant other, ph 15:48 Condition: good 15:48 Discharge instructions given to patient, Instructed on discharge instructions, follow up and referral plans. Demonstrated understanding of instructions, follow-up care, 15:49 Patient left the ED. ph NIH Stroke Scale - NIH Stroke Score Date: 04/19/2024 Time: 12:16 Total Score = 0 10. Dysarthria (speech clarity - read or repeat words) - 0(Normal) 11. Extinction and Inattention (visual/tactile/auditory/spatial/personal) - 0(No abnormality) 1a. Level of Consciousness (LOC) - 0(Alert) 1b. Level of Consciousness (LOC) (Month \\T\\ Age) - 0(Both) 1c. LOC Commands (Open \\T\\ Closes Eyes/Claims Adjustor) - 0(Both) 2. Best Gaze (Lateral Gaze Paresis) - 0(Normal) 3. Visual Field Loss - 0(No visual loss) 4. Facial Palsy - 0(Normal) 5a. Left Arm: Motor (10-second hold) - 0(No drift) 5b. Right Arm: Motor (10-second hold) - 0(No drift) 6a. Left Leg: Motor (5-second hold - always test supine) - 0(No drift) 6b. Right Leg: Motor (5-second hold - always test supine) - 0(No drift) 7. Limb Ataxia (finger/nose \\T\\ heel/lugo - test with eyes open) - 0(Absent) 8. Sensory Loss (pinprick arms/legs/face) - 0(Normal) 9. Best Language: Aphasia (description/naming/reading) - 0(No aphasia) Initials: me1 Signatures: Dispatcher [employer] EDAlice Moreira RN RN Nava Ritter MD MD sd2 Amy Smith RN RN kc6 Shelly Vo Michelle, RN RN me1 Corrections: (The following items were deleted from the chart) 12:04 11:54 Chief complaint: Patient states: headache, blurry vision and eye redness ph x1 mo. worse over the last week. went to urgent care this AM and they referred her here. denies slurred speech, weakness, or numbness. kc6 12:08 11:54 Chief complaint: Patient states: headache, blurry vision and eye redness me1 x1 mo. worse over the last week. went to urgent care this AM and they referred her here. denies slurred speech, weakness, or numbness. ph
--- NOTE | 2024-04-19 15:20 | EDPHYS ---
Physician Documentation [facility] Name: Radha Ha Age: 48 yrs Sex: Female : 1975 Arrival Date: 04/19/2024 Time: 11:50 Bed 4 Private MD: ED Physician Nava Ritter HPI: 04/19 13:38 This 48 yrs old Female presents to ER via Ambulatory with complaints of Headache, sd2 Blurred Vision. 13:38 48-year-old female presents with a chief complaint of headache and blurred vision. She sd2 reports she initially started with redness to her right eye about 4 weeks ago and then developed a headache that has been progressively worsening since then and most severe for the past week and a half. She then developed blurred vision in both of her eyes. She also noticed on her exam today that she has some numbness to the left lower side of her face but denies any numbness or weakness elsewhere. She states that the headache is mostly behind both of her eyes. She denies any prior history of migraines or similar symptoms.. DEVELOPMENT INTERN: 11:56 LMP 04/14/2024, unknown kc6 Historical: - Allergies: 11:56 Cephalexin; kc6 11:56 PENICILLINS; kc6 - PMHx: 11:56 MRSA; Hidradenitis Suppurativa; kc6 - PSHx: 11:56 None; kc6 - Immunization history:: Client reports having NOT received the Covid vaccine. Flu vaccine is not up to date. - Infectious Disease History:: Denies. - Social history:: Smoking status: Reported history of juuling and/or vaping. ROS: 13:38 Constitutional: Negative for fever, chills, and weight loss, Eyes: Negative for injury sd2 and discharge. Positive for pain and redness. ENT: Negative for injury, pain, and discharge, Cardiovascular: Negative for chest pain, palpitations, and edema, Respiratory: Negative for shortness of breath, cough, wheezing. Abdomen/GI: Negative for abdominal pain, nausea, vomiting, diarrhea. MS/Extremity: Negative for injury and deformity, Skin: Negative for injury, rash, and discoloration, Neuro: Negative for headache, positive for numbness and tingling. Exam: 13:38 Constitutional: This is a well developed, well nourished patient who is awake, alert, sd2 and in no acute distress. Head/Face: Normocephalic, atraumatic. Eyes: EOMI, normal conjunctiva bilaterally ENT: Nares patent. No nasal discharge, no septal abnormalities noted. Tympanic membranes are normal and external auditory canals are clear. Oropharynx with no redness, swelling, or masses, exudates, or evidence of obstruction, uvula midline. Mucous membranes moist. Neck: Trachea midline, no thyromegaly or masses palpated, and no cervical lymphadenopathy. Supple, full range of motion without nuchal rigidity, or vertebral point tenderness. No Meningismus. Chest/axilla: Normal chest wall appearance and motion. Nontender with no deformity. Cardiovascular: Regular rate and rhythm with a normal S1 and S2. No gallops, murmurs, or rubs. 2+ distal pulses. Respiratory: Lungs have equal breath sounds bilaterally, clear to auscultation and percussion. No rales, rhonchi or wheezes noted. No increased work of breathing, no retractions or nasal flaring. Abdomen/GI: Soft, non-tender, with normal bowel sounds. No guarding or rebound. No evidence of tenderness throughout. Skin: Warm, dry with normal turgor. Normal color with no rashes, no lesions, and no evidence of cellulitis. MS/ Extremity: Pulses equal, no cyanosis. Neurovascular intact. Full, normal range of motion. Neuro: Awake and alert, GCS 15, oriented to person, place, time, and situation. Cranial nerves II-XII grossly intact. Motor strength 5/5 in all extremities. Sensory grossly intact aside from subjective decrease sensation to the left lower half of her face. Cerebellar exam normal. Normal gait. Psych: Awake, alert, with orientation to person, place and time. Behavior, mood, and affect are within normal limits. 13:38 ECG was reviewed by the Attending Physician. Sinus bradycardia, rate 54, incomplete sd2 right bundle branch block present, no STEMI criteria Vital Signs: 11:54 BP 147 / 85; Pulse 80; Resp 16 S; Temp 98.4(O); Pulse Ox 100% on R/A; Weight 81.65 kg; kc6 Height 5 ft. 5 in. (R); Pain 7/10; 13:00 BP 135 / 92; Pulse 60; Resp 15; Pulse Ox 100% on R/A; me1 13:50 BP 143 / 89; Pulse 58; Resp 18; Pulse Ox 100% on 15 lpm Non-rebreather mask; FiO2 100 %;ph 15:00 BP 128 / 89; Pulse 58; Resp 18; Temp 97.9; Pulse Ox 98% on R/A; ph 11:54 Body Mass Index 29.95 (81.65 kg, 165.1 cm) kc6 11:54 Pain Scale: Adult kc6 NIH Stroke Scale Scores: 12:16 NIHSS Score: 0 me1 Delia Coma Score: 13:38 Eye Response: spontaneous(4). Motor Response: obeys commands(6). Verbal Response: sd2 oriented(5). Total: 15. Visual Acuity: 15:37 Left Eye Visual acuity 20/30, Pupil size 4 mm, Normal; Right Eye Visual acuity 20/25, ph Pupil size 4 mm, Normal; Both Eyes Visual acuity 20/25; Without Lenses; MDM: 11:59 Patient medically screened. sd2 13:38 Differential diagnosis: Cluster headache, tension headache, migraine headache, orbital sd2 cellulitis, subarachnoid hemorrhage, intracranial hemorrhage among others. Data reviewed: vital signs, nurses notes, lab test result(s), EKG, radiologic studies. I considered the following discharge prescriptions or medication management in the emergency department Medications were administered in the Emergency Department. See MAR. Discussion of test interpretation with radiology: I had a discussion with radiology regarding a test interpretation. Reports head CT is negative. Historians other than the Patient: Spouse/Significant Other: at bedside reports further history. Care significantly affected by the following chronic conditions: Hidradenitis suppurativa. 15:15 Counseling: I had a detailed discussion with the patient and/or guardian regarding the sd2 historical points, exam findings, and any diagnostic results supporting the discharge/admit diagnosis, lab results, radiology results, the need for outpatient follow up, to return to the emergency department if symptoms worsen or persist or if there are any questions or concerns that arise at home. Refusal of service: The patient/guardian displays adequate decision making capability and despite a detailed discussion of alternatives, benefits, risks, and consequences refuses: Admission to the hospital for further work-up and treatment. ED course: Labs and imaging reviewed. No significant findings at this time. The patient's symptoms have significantly improved with 100% oxygen via nonrebreather as well as a migraine cocktail. She reports that she feels much better and currently does not have any acute focal neurodeficits. Due to the patient's subjective decrease sensation to the left lower side of her face and concern for the timeline of how long the symptoms have been ongoing, I did discuss admission to the hospital with the patient for MRI and neurology consultation and further testing. After discussion of the risks and benefits of leaving, the patient has decided to not be admitted and will be discharged home and follow-up outpatient with her primary care provider and neurology to have outpatient testing performed. I did also advise that she follow-up with her eye doctor as well. She states that if she has not improved within the next 24 to 48 hours, she will return for repeat evaluation. . 04/19 12:37 Order name: CBC with Diff; Complete Time: 13:31 sd04/19 12:37 Order name: CMP; Complete Time: 13:31 04/19 12:37 Order name: Magnesium; Complete Time: 13:31 04/19 12:37 Order name: Troponin High Sensitivity; Complete Time: 13:31 04/19 12:37 Order name: Urinalysis w/ reflexes; Complete Time: 13:31 04/19 12:37 Order name: Urine Drug Screen; Complete Time: 13:31 sd04/19 12:37 Order name: CT Head Brain wo Cont 04/19 12:37 Order name: EKG - Nurse/Tech; Complete Time: 13:03 sd04/19 12:37 Order name: Visual Acuity; Complete Time: 15:37 sd2 Administered Medications: 13:49 Drug: Ketorolac IVP 15 mg IVP once Route: IVP; Site: right antecubital; ph 15:47 Follow up: Response: No adverse reaction ph 13:49 Drug: metoCLOPramide IVP 10 mg IVP once; over 1 to 2 minutes Route: IVP; Site: right ph antecubital; 15:48 Follow up: Response: No adverse reaction ph 13:49 Drug: diphenhydrAMINE IVP 25 mg IVP once Route: IVP; Site: right antecubital; ph 15:48 Follow up: Response: No adverse reaction ph Disposition Summary: 04/19/24 15:19 Discharge Ordered Problem: new sd2 Symptoms: have improved sd2 Condition: Stable sd2 Diagnosis - Headache sd2 - Conjunctival injection, bilateral sd2 - Paresthesia of left lower face sd2 - Blurred vision sd2 Followup: sd2 - With: Private Physician - When: 2 - 3 days - Reason: Recheck today's complaints, Continuance of care, Re-evaluation by your physician Followup: sd2 - With: Bentley Recinos MD - When: 2 - 3 days - Reason: Recheck today's complaints, Continuance of care Discharge Instructions: - Discharge Summary Sheet sd2 - Cluster Headache sd2 - General Headache Without Cause sd2 Forms: - Medication Reconciliation Form sd2 - Antibiotic Education sd2 - Prescription Opioid Use sd2 - Patient Portal Instructions sd2 - Leadership Thank You Letter sd2 NIH Stroke Scale - NIH Stroke Score Date: 04/19/2024 Time: 12:16 Total Score = 0 10. Dysarthria (speech clarity - read or repeat words) - 0(Normal) 11. Extinction and Inattention (visual/tactile/auditory/spatial/personal) - 0(No abnormality) 1a. Level of Consciousness (LOC) - 0(Alert) 1b. Level of Consciousness (LOC) (Month \T\ Age) - 0(Both) 1c. LOC Commands (Open \T\ Closes Eyes/Hydroelectric Plant Operator) - 0(Both) 2. Best Gaze (Lateral Gaze Paresis) - 0(Normal) 3. Visual Field Loss - 0(No visual loss) 4. Facial Palsy - 0(Normal) 5a. Left Arm: Motor (10-second hold) - 0(No drift) 5b. Right Arm: Motor (10-second hold) - 0(No drift) 6a. Left Leg: Motor (5-second hold - always test supine) - 0(No drift) 6b. Right Leg: Motor (5-second hold - always test supine) - 0(No drift) 7. Limb Ataxia (finger/nose \T\ heel/lugo - test with eyes open) - 0(Absent) 8. Sensory Loss (pinprick arms/legs/face) - 0(Normal) 9. Best Language: Aphasia (description/naming/reading) - 0(No aphasia) Initials: me1 Signatures: Dispatcher [employer] EDAlice Moreira RN RN Nava Ritter MD MD sd2 Amy Smith, RN RN kc6
[2024-04-19 16:23] VITALS: BP 128/89; TEMP 97.9; O2SAT 98
--- NOTE | 2024-04-19 18:36 | RAD REPORT ---
EXAM DESCRIPTION: CT - Head Brain Wo Cont - 04/19/2024 12:47 pm CLINICAL HISTORY: Headache COMPARISON: none TECHNIQUE: Computed axial tomography of the head was obtained. IV contrast was not requested. All CT scans are performed using dose optimization technique as appropriate and may include automated exposure control or mA/KV adjustment according to patient size. FINDINGS: An intracranial bleed is not seen The ventricles are normal in caliber No significant hypodense areas within the brain visualized No extra-axial fluid collection is noted. Fluid within the sinuses/ mastoids is not seen. 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 A preliminary report was given to the emergency room IMPRESSION: No acute intracranial abnormality is seen If patient's symptoms persist MRI of the brain would be recommended
--- NOTE | 2024-04-21 14:12 | EKG ---
Test Date: 2024-04-19 Test Time: 12:54:29 [employer]: MEASUREMENT RESULTS: Intervals: Rate: 54 [place]: 128 QRSD: 94 QT: 418 QTc: 396 [place]: P: 35 [place]: 128 QRS: 54 T: 43 INTERPRETIVE STATEMENTS: Sinus bradycardia Incomplete right bundle branch block Borderline ECG Compared to ECG 10/26/2022 09:19:23 No significant changes Electronically Signed On 04-21-24 14:08:07 CDT by Jace Wilson
== END 2024-04-19 15:49 | disposition home or self-care (01) ==
LOC: ER 11:50
DX: R51.9 Headache, unspecified (principal); H11.89 Other specified disorders of conjunctiva; R20.2 Paresthesia of skin; H53.8 Other visual disturbances; Z28.310 Unvaccinated for COVID-19
CPT/HCPCS: 93005; 85025; 81001; 36415; 83735; 84484; 80053; 80307; 70450; 96375; 96374; 99285; J2765; J1200